=== PATIENT | male | born 1975 | race Caucasian/White ===

== ENCOUNTER 2023-09-11 08:05 | Outpatient (OUT) | payer OTHER, SELFPAY ==
[2023-09-11 08:34] LABS: Basophils Absolute Auto 0.1 10^3/uL (0.0-0.1); Basophils Percent Auto 1.8 % (0.2-2.0); Eosinophils Absolute Auto 0.3 10^3/uL (0.0-0.7); Eosinophils Percent Auto 5.1 % (0.9-7.0); Hematocrit 56.5 % (42.0-54.0); Hemoglobin 19.6 g/dL (14.0-18.0); Immature Granulocytes Abs Auto 0.05 10^3/uL (0.00-0.03); Immature Granulocytes Pct Auto 0.8 % (0.0-0.5); Lymphocytes Absolute Auto 1.1 10^3/uL (1.2-3.8); Lymphocytes Percent Auto 17.8 % (20.5-60.0); Mean Corpuscular HGB Conc 34.7 g/dL (29.9-35.2); Mean Corpuscular Volume 100.9 fL (80.0-94.0); Mean Platelet Volume 9.6 fL (9.5-13.5); Monocytes Absolute Auto 0.4 10^3/uL (0.3-0.8); Neutrophils Absolute Auto 4.1 10^3/uL (1.4-6.5); Neutrophils Percent Auto 68.5 % (43.0-75.0); Platelet Count 209 10^3/uL (150-450); Red Cell Distribution Width 13.5 % (11.0-15.0)
[2023-09-11 09:51] LABS: Alanine Aminotransferase 29 U/L (16-63); Albumin Globulin Ratio 1.1; Albumin Level 3.9 g/dL (3.4-5.0); Alkaline Phosphatase 87 U/L (46-116); Anion Gap 15.3; Aspartate Amino Transferase 17 U/L (15-37); BUN Creatinine Ratio 18.4; Bilirubin Total 1.6 mg/dL (0.2-1.0); Carbon Dioxide 23.4 mmol/L (21.0-32.0); Chloride 104 mmol/L (98-107); Cholesterol 133 mg/dL (<=200); Estimated GFR (African America >60 (>=60); Estimated GFR (Non-African Ame >60 (>=60); Free T3 3.12 pg/mL (2.18-3.98); Globulin 3.6 g/dL; Glucose 95 mg/dL (74-106); HDL Cholesterol 44 mg/dL (40-60); LDL Cholesterol Calculated 66.8 mg/dL; Potassium 3.7 mmol/L (3.5-5.1); Sodium 139 mmol/L (136-145); Thyroid Stimulating Hormone 2.304 uIU/mL (0.358-3.740); Total Protein 7.5 g/dL (6.4-8.2); Triglycerides 111 mg/dL (<=150); VLDL CHOLESTEROL 22.2 mg/dL
[2023-09-11 10:22] LABS: Prostate Specific Antigen Scrn 0.23 ng/mL (<=4.00)
[2023-09-11 11:13] LABS: Free T4 0.95 ng/dL (0.76-1.46)
== END 2023-09-11 08:06 | disposition home or self-care (01) ==
PROVIDERS: PCP Family Medicine; Visit Provider Family Medicine
DX: R53.83 Other fatigue (principal); Z12.5 Encounter for screening for malignant neoplasm of prostate; Z13.220 Encounter for screening for lipoid disorders; E55.9 Vitamin D deficiency, unspecified
CPT/HCPCS: 36415; 80053; 80061; 82306; 82607; 84402; 84403; 84439; 84443; 84481; 85025; G0103

== ENCOUNTER 2024-08-12 08:04 | Emergency (ER) | payer OTHER, SELFPAY ==
[2024-08-12 08:09] VITALS: BP 177/97; PULSE 86; TEMP 36.8; O2SAT 95; BMI 37.7
--- NOTE | 2024-08-12 08:14 | ED_ITS ---
HPI - Wound/Laceration General Chief Complaint: Wound/Laceration Stated Complaint: LACERATION L HAND Time Seen by Provider: 08/12/24 08:06 Source: patient Mode of arrival: walk-in Limitations: no limitations History of Present Illness HPI narrative: 49-year-old male presents to the emergency department for laceration to his left thumb. This was sustained yesterday when he was working on a truck and he cut it on a piece of metal. It has been more than 10 years since he had a tetanus shot. He put liquid glue on it but it seemed to not be working so he came in today. No purulent drainage. Related Data Previous Rx's ?Medication ?Instructions ?Recorded cephalexin 500 mg capsule 500 mg PO TID 5 days #15 caps 08/12/24 Allergies Allergy/AdvReac Type Severity Reaction Status Date / Time No Known Drug Allergies Allergy Verified 08/12/24 08:09 Review of Systems ROS Narrative A ten point review of systems is negative except as noted above. PFSH PFSH Social History Little interest or pleasure in doing things: not at all Feeling down, depressed, or hopeless: not at all Exam Narrative Exam Narrative: Nurses note and vital signs reviewed and patient is not hypoxic. General: The patient appears well and in no apparent distress. Patient is resting comfortably on cart. Skin: Warm, dry, no pallor noted. There is no rash noted. Head: Normocephalic, atraumatic Eye: Normal conjunctiva, no drainage Ears, Nose, Mouth, and Throat: oral mucosa is moist. Nares patent. Cardiovascular: Regular Rate and Rhythm Respiratory: Patient is in no distress, no accessory muscle use Back: non-tender GI: Nontender Musculoskeletal: The left thumb is examined. On the extensor side of the IP joint is a 1 and half centimeter laceration, transverse. No active bleeding or foreign bodies. IP joint has full range of motion. No other wounds present Neurological: A&O, normal speech Psychiatric: Cooperative Constitutional Vital Signs, click to edit/add: Last Vital Signs Temp 98.2 F 08/12/24 08:09 Pulse 86 08/12/24 08:09 Resp 18 08/12/24 08:09 BP 177/97 H 08/12/24 08:09 Pulse Ox 95 08/12/24 08:09 O2 Del Method Room Air 08/12/24 08:09 Course Vital Signs Vital signs: Vital Signs Temperature 98.2 F 08/12/24 08:09 Pulse Rate 86 08/12/24 08:09 Respiratory Rate 18 08/12/24 08:09 Blood Pressure 177/97 H 08/12/24 08:09 Pulse Oximetry 95 08/12/24 08:09 Oxygen Delivery Method Room Air 08/12/24 08:09 Temperature 98.2 F 08/12/24 08:09 Pulse Rate 86 08/12/24 08:09 Respiratory Rate 18 08/12/24 08:09 Blood Pressure 177/97 H 08/12/24 08:09 Pulse Oximetry 95 08/12/24 08:09 Oxygen Delivery Method Room Air 08/12/24 08:09 MDM - Wound/Laceration MDM Narrative Medical decision making narrative: Presentation is wait for sutures. Tetanus is updated. The wound was cleansed and Steri-Strips were applied. Splint applied, application checked by me and found to be appropriate, he is neurovascularly intact. Treatment diagnosis and follow-up were discussed with the patient. Differential Diagnosis Differential diagnosis: Likely laceration and avulsion of skin Discharge Plan Discharge Chief Complaint: Wound/Laceration Clinical Impression: Laceration Patient Disposition: Home, Self-Care Time of Disposition Decision: 08:13 Condition: Good Mode of Transportation: Private Vehicle Prescriptions / Home Meds: New cephalexin 500 mg capsule 500 mg PO TID 5 Days Qty: 15 0RF Print Language: Bengali Referrals: PRIETO LEAL [Primary Care Provider] - 1 week
--- OUTSIDE RECORDS SUMMARY | 2024-08-12 08:19 | XMS_ITS | CCD ---
Author Organization [facility] Care Team Providers Care Receivable Executive Name Role Phone EZE KENNEDY Primary Care Unavailable PAY, BROWN Attending Unavailable PAY, BROWN Consulting Unavailable PAY, BROWN Admitting Unavailable ALLAN BERGER Consulting Unavailable Maurice Leahy Consulting Unavailable MARCIAEZE M Attending Unavailable MARCIAEZE Consulting Unavailable MARCIA, EZE M Admitting Unavailable Marcia, Eez Unavailable Stormy White Unavailable Savanah Cuello Unavailable MARCIAEZE Primary Care Physician EZE KENNEDY Attending Unavailable MARCIA, EZE Robles Admitting Unavailable Marcia Eze MARIE. Primary Care Provider Edward Barnard DO Attending Provider Ginger Elder APRN Attending Provider [phone] Eze Kennedy DO. Primary Care Provider Ginger Elder APRN Attending Provider [phone] Eze Kennedy. Primary Care Unavailable Edward Barnard Admitting Unavailable Edward Barnard Attending Unavailable Eze Kennedy. Primary Care Unavailable Edward Barnard Admitting Unavailable Edward Barnard Attending Unavailable Ginger Elder Attending Unavailable Marcia, Eze Robles. Primary Care Unavailable Ginger Elder Admitting Unavailable Medications Current Medications Medication Drug Class(es) Dates Sig (Normalized) Sig (Original) acetaminophen 500 mg / diphenhydrAMINE hydrochloride 25 mg oral tablet (8 sources) Histamine-1 Receptor Antagonist take 1 tablet by mouth every twenty-four hours Tylenol PM Extra Strength 500-25 MG 1 tablet at bedtime as needed Orally Once a day Active celecoxib 200 mg oral capsule (8 sources) Nonsteroidal Anti-inflammatory Drug Start: 5 End: 5 take 1 capsule by mouth twice daily Celecoxib 200 mg capsule Active 200 MG PO Twice daily 180 90 May 24, 2024 11:05am cholecalciferol 0.075 mg oral tablet (1 source) Vitamin D Start: 5 take 1 tablet by mouth once daily Cholecalciferol (Vitamin D3) 75 mcg (3,000 unit) tablet Active 75 MCG PO Daily July 23, 2024 12:00am doxycycline hyclate 100 mg oral tablet (3 sources) Tetracycline-class Drug Start: 4 take 1 tablet by mouth every twelve hours Doxycycline Hyclate 100 MG 1 tablet Orally Twice a day for 10 day(s) Apr, Active losartan potassium 25 mg oral tablet (1 source) Angiotensin 2 Receptor Loc Start: 5 take 1 tablet by mouth once daily Losartan 25 mg tablet Active 25 MG PO Daily July 23, 2024 12:00am melatonin 10 mg extended release oral tablet (4 sources) Melatonin 10 MG as directed Orally Active Multivitamin tablet (1 source) Start: 5 take 1 tablet by mouth once daily Multivitamin tablet Active 1 TAB PO Daily July 23, 2024 12:00am Henderson-3 Fatty Acids 1,000 mg capsule (1 source) Start: 5 take 1 capsule by mouth once daily Henderson-3 Fatty Acids 1,000 mg capsule Active 1000 MG PO Daily July 23, 2024 12:00am tadalafil 20 mg oral tablet (20 sources) Phosphodiesterase 5 Inhibitor Start: 4 Tadalafil 20 mg tablet Active 20 MG PO .Q36HR February 22, 2024 2:42pm Start: 02-13-2024 End: 02-22-2024 Tadalafil 20 mg tablet Disco ntinued 0 .ROUTE .COMPLEX February 13, 2024 1:30pm February 22, 2024 2:42pm TAKE 1 TABLET EVERY 36 HOURS DIRECTED Start: 02-13-2024 End: 02-22-2024 Tadalafil 20 mg tablet Disco ntinued 0 .ROUTE .COMPLEX February 13, 2024 12:30pm February 22, 2024 1:42pm TAKE 1 TABLET EVERY 36 HOURS DIRECTED Start: 02-13-2024 End: 02-22-2024 Tadalafil Discontinued 0 .RO [place] .COMPLEX February 13, 2024 1:30pm February 22, 2024 2:42pm TAKE 1 TABLET EVERY 36 HOURS DIRECTED Start: 08-28-2020 End: 02-13-2024 Tadalafil 20 mg tablet Disco ntinued 20 MG PO September 17, 2021 12:00am February 13, 2024 1:30pm 60 actuat testosterone 20.25 mg/actuat topical gel (4 sources) Androgen Start: 05-10-2024 Testosterone (Androgel) 20.25 mg/1.25 gram (1.62 %) gel in metered-dose pump Active 1 PUMP TOPICAL Daily 75 May 10, 2024 1:23pm apply 1 pump amount over max area of ONE upper arm and shoulder traZODone hydrochloride 100 mg oral tablet (20 sources) Serotonin Reuptake Inhibitor Start: 01-12-2024 take 1 tablet by mouth once daily at bedtime as needed Trazodone 100 mg tablet Active 100 MG PO Daily at bedtime as needed January 12, 2024 1:18pm Start: 08-17-2023 End: 01-12-2024 Trazodone 100 mg tablet Disc ontinued 0 .ROUTE .COMPLEX 90 November 21, 2023 10:46am January 12, 2024 1:18pm TAKE 1 TABLET DAILY AT BEDTIME NEEDED Start: 05-14-2021 take 1 tablet by cl every twenty-four hours traZODone HCl 50 MG 1 tablet at bedtime as needed Orally Once a day for 30 day(s) Apr, Active Start: 05-11-2018 End: 08-17-2023 take 1 tablet by mouth once daily at bedtime Trazodone 100 mg tablet Discontinued 100 MG PO Daily at bedtime September 17, 2021 12:00am August 17, 2023 12:56pm Turmeric extract (1 source) Start: 07-23-2024 take 1 capsule by mo [facility] once daily Turmeric 400 mg capsule Active 400 MG PO Daily July 23, 2024 12:00am Completed/Discontinued Medications Medication Drug Class(es) Dates Sig (Normalized) Sig (Original) acetaminophen 325 mg / HYDROcodone bitartrate 5 mg oral tablet (9 sources) Opioid Agonist Start: 09-30-2021 End: 08-25-2023 take 1 tablet by mouth every six hours as needed for pain Hydrocodone-Acetam inophen 5-325 mg tablet Discontinued 1 TAB PO Q6H as needed for pain 18 11September 30, 2021 August 25, 2023 9:47am [id number] 200 actuat albuterol 0.09 mg/actuat metered dose inhaler (12 sources) beta2-Adrenergic Agonist Start: 08-22-2023 End: 05-30-2024 take 2 puff(s) by inhalation four times daily as needed Albuterol Sulfate 90 mcg/actuation HFA aerosol inhaler Discontinued 2 PUFF INHALATION Four times daily August 22, 2023 12:00am May 30, 2024 3:27pm [employer] puffs Inhalation 4 times a day prn; Note: Source Status: Start; Refills: 0; Provider: Khushboo Arnold Start: 04-28-2023 take 2 puff(s) by in halation four times daily as needed Albuterol Sulfate HFA 108 (90 Base) MCG/ACT 2 puffs Inhalation 4 times a day prn Apr, Active Albuterol Sulfate 90 mcg/actuation HFA aerosol inhaler (3 sources) Start: 05-30-2024 End: 07-23-2024 Albuterol Sulfate 90 mcg/actuation HFA aerosol inhaler Discontinued 2 INH INHALATION EVERY 4-6 HOURS as needed for shortness of breath or wheezing 6.7 May 30, 2024 1:00am July 23, 2024 10:20am Start: 05-30-2024 Albuterol Sulf ate 90 mcg/actuation HFA aerosol inhaler Active 2 INH INHALATION EVERY 4-6 HOURS as needed for shortness of breath or wheezing 6.7 May 30, 2024 12:00am azithromycin 250 mg oral tablet (3 sources) Macrolide Antimicrobial Start: 05-30-2024 End: 07-23-2024 Azithromycin 250 mg tablet Discontinued 0 PO .COMPLEX 6 May 30, 2024 1:00am July 23, 2024 10:21am For 250 mg dose pack: take 500 mg today (day 1), then 250 mg for 4 days (days 2-5) PO benzonatate 200 mg oral capsule (12 sources) Non-narcotic Antitussive Start: 08-22-2023 End: 08-25-2023 take 1 capsule by mouth three times daily Benzonatate 200 mg capsule Discontinued 1 CAP PO Three times daily August 22, 2023 12:00am August 25, 2023 9:46am [employer] capsule Orally Three times a day; Note: Source Status: Start; Refills: 0; Provider: Khushboo Arnold Start: 04-28-2023 take 1 capsule by mo uth every eight hours Benzonatate 200 MG 1 capsule Orally Three times a day Apr, Active esomeprazole 20 mg delayed release oral capsule (13 sources) Proton Pump Inhibitor Start: 08-22-2023 End: 08-25-2023 take 2 capsules by mouth once daily Esomeprazole Magnesium (Nexium) 20 mg capsule,delayed release(DR/EC) Discontinued 2 CAP PO Daily August 22, 2023 12:00am August 25, 2023 9:47am [employer] capsules Orally Once a day; Note: Source Status: Not-TakingundefinedPRN; Provider: Khushboo Pavon ( ) take 2 capsules by m outh every twenty-four hours NexIUM 24HR 20 MG 2 capsules Orally Once a day Not-Taking/PRN fluticasone propionate 0.05 mg/actuat metered dose nasal spray (12 sources) Corticosteroid Start: 08-22-2023 End: 05-30-2024 take 2 spray(s) nasal route once daily Fluticasone Propionate 50 mcg/actuation spray,suspension Discontinued 2 SPRAY INTRANASAL Daily August 22, 2023 12:00am May 30, 2024 3:27pm [employer] sprays Nasally Once a day; Note: Source Status: Start; Refills: 0; Provider: Khushboo Arnold Start: 04-28-2023 take 2 spray(s) nasa l route once daily Fluticasone Propionate 50 MCG/ACT 2 sprays Nasally Once a day for 14 day(s) Apr, Active ibuprofen 200 mg oral tablet (20 sources) Nonsteroidal Anti-inflammatory Drug Start: 08-22-2023 End: 05-03-2024 take 1 tablet by mouth three times daily as needed Ibuprofen 200 mg tablet Discontinued 200 MG PO Three times daily as needed August 25, 2023 9:47am May 03, 2024 10:32am take 1 tablet by cl th three times daily at mealtime as needed Ibuprofen 200 MG 1 tablet with food or m ilk as needed Orally Three times a day Not-Taking/PRN meloxicam 15 mg oral tablet (7 sources) Nonsteroidal Anti-inflammatory Drug Start: 01-15-2024 End: 02-05-2024 take 1 tablet by mouth once daily Meloxicam 15 mg tablet Discontinued 15 MG PO Daily January 15, 2024 12:00am February 05, 2024 10:31am methylPREDNISolone 4 mg oral tablet (5 sources) Corticosteroid Start: 05-30-2024 End: 07-23-2024 take 1 tablet by mouth once Methylprednisolone (Medrol (Cipriano)) 4 mg tablets,dose pack Discontinued 0 PO per package directions May 30, 2024 1:00am July 23, 2024 10:21am PO PER PKG DIR Start: 03-31-2022 methylPREDNISo lone 4 MG as directed Orally Once a day for 6 days Mar, Active predniSONE 20 mg oral tablet (9 sources) Start: 02-23-2024 End: 05-03-2024 take 3 tablets by mouth once daily, then take 2 tablets by mouth once daily, then take 1 tablet by mouth once daily at mealtime Prednisone 20 mg tablet Discontinued 0 PO daily 09 01February 23, 2024 12:00am May 03, 2024 10:13am 3 p.o. daily x 3 days, 2 p.o. daily x 3 days, 1 p.o. daily x 3 days -with food Start: 04-28-2023 take 1 tablet by cl th every twelve hours prednisone 20 MG 1 tablet Orally 2 times a day for 5 Apr, Active Testosterone (Androgel) 20.2 5 mg/1.25 gram (1.62 %) gel in metered-dose pump (8 sources) Start: 09-21-2023 End: 05-10-2024 Testosterone (Androgel) 20.2 5 mg/1.25 gram (1.62 %) gel in metered-dose pump Discontinued 1 PUMP TOPICAL Daily 75 September 21, 2023 12:00am May 10, 2024 1:23pm apply 1 pump amount over max area of ONE upper arm and shoulder Start: 09-21-2023 End: 05-10-2024 Testosterone (Androgel) 20.2 5 mg/1.25 gram (1.62 %) gel in metered-dose pump Discontinued 1 PUMP TOPICAL Daily 75 September 20, 2023 11:00pm May 10, 2024 12:23pm apply 1 pump amount over max area of ONE upper arm and shoulder Start: 09-21-2023 Testosterone ( Androgel) 20.25 mg/1.25 gram (1.62 %) gel in metered-dose pump Active 1 PUMP TOPICAL Daily 75 September 20, 2023 11:00pm apply 1 pump amount over max area of ONE upper arm and shoulder Start: 09-21-2023 Testosterone ( Androgel) 20.25 mg/1.25 gram (1.62 %) gel in metered-dose pump Active 1 PUMP TOPICAL Daily 75 September 21, 2023 12:00am apply 1 pump amount over max area of ONE upper arm and shoulder Problems Active Problems Problem Classification Problem Date Documented Date Episodic/Chronic Chronic obstructive pulmonary disease and bronchiectasis (1 source) Bronchitis, not specified as acute or chronic Episodic Esophageal disorders (5 sources) Laryngopharyngeal reflux; Translations: [Gastro-esophageal reflux disease without esophagitis] Chronic Essential hypertension (2 sources) Hypertensive disorder; Translations: [Essential (primary) hypertension] 07-23-2024 Chronic Fever of unknown origin (4 sources) Fever, unspecified; Translations: [FEVER UNSPECIFIED] Onset: 04-28-2020 Episodic Headache; including migraine (17 sources) Ophthalmic migraine; Translations: [Migraine with aura, not intractable, without status migrainosus] Onset: 05-14-2021 Resolved: 05-14-2021 Chronic Joint disorders and dislocations; trauma-related (1 source) Unspecified internal derangement of right knee; Translations: [Unspecified internal derangement of right knee] Onset: 04-18-2024 Chronic Malaise and fatigue (10 sources) Fatigue; Translations: [Other fatigue] 08-25-2023 Episodic Osteoarthritis (20 sources) Osteoarthritis of left knee joint; Translations: [Unilateral primary osteoarthritis, left knee] Onset: 08-09-2024 02-05-2024 Chronic Other lower respiratory disease (2 sources) Cough; Translations: [Cough] 02-23-2024 Episodic Other lower respiratory disease (3 sources) Dyspnea; Translations: [Shortness of breath] 05-30-2024 Episodic Other lower respiratory disease (3 sources) Wheezing; Translations: [Wheezing] 05-30-2024 Episodic Other lower respiratory disease (3 sources) Pneumonitis; Translations: [Other disorders of lung] 05-30-2024 Episodic Other lower respiratory disease (3 sources) Other disorders of lung; Translations: [Pneumonia, organism unspecified] 05-30-2024 Episodic Other lower respiratory disease (1 source) Wheezing; Translations: [Wheezing] Onset: 05-30-2024 Episodic Other lower respiratory disease (1 source) Shortness of breath; Translations: [Shortness of breath] Onset: 05-30-2024 Episodic Other male genital disorders (18 sources) Male erectile dysfunction, unspecified; Translations: [Erectile dysfunction, unspecified erectile dysfunction type] Onset: 12-31-2021 Resolved: 12-31-2021 Chronic Other nervous system disorders (16 sources) Meralgia paresthetica of right leg; Translations: [Meralgia paresthetica, right lower limb] Chronic Other nervous system disorders (9 sources) Acute postoperative pain; Translations: [Other acute postprocedural pain] 09-30-2021 Episodic Other non-traumatic joint disorders (2 sources) Pain in right knee; Translations: [Pain in joint, lower leg] 01-15-2024 Episodic Other screening for suspected conditions (not mental disorders or infectious disease) (14 sources) Decreased testosterone level ; Translations: [Other specified abnormal findings of blood chemistry] 09-21-2023 Episodic Other upper respiratory disease (1 source) Dysphonia Episodic Other upper respiratory infections (2 sources) Acute laryngitis; Translations: [Acute sinusitis, unspecified] Episodic Residual codes; unclassified (16 sources) Difficulty sleeping ; Translations: [Sleep disorder, unspecified] Episodic Residual codes; unclassified (6 sources) Sleep disorder, unspecified Onset: 05-14-2021 Resolved: 11-08-2021 Episodic Screening and history of mental health and substance abuse codes (1 source) Personal history of nicotine dependence; Translations: [PERSONAL HISTORY OF NICOTINE DEPEND] Onset: 04-30-2020 Episodic Unclassified (1 source) COVID-19; Translations: [COVID-19] Onset: 04-30-2020 Unclassified (3 sources) Contact with and (suspected) exposure to; Translations: [Contact with and (suspected) exposure to] Onset: 04-27-2020 Past or Other Problems Problem Classification Problem Date Documented Da te Episodic/Chronic Abdominal hernia (2 sources) Umbilical hernia without obstruction or gangrene Onset: 07-23-2021 Resolved: 09-24-2021 Episodic Other upper respiratory disease (1 source) Unspecified voice and resonance disorder Onset: 05-14-2021 Resolved: 05-14-2021 Episodic Results Test Name Value Interpretation Reference Range Facility XR knee BI 4Von 08-09-2024 XR knee BI 4V [facility] [address] [place] [address] XRay Report Signed Patient: Earle Mancia MR#: [id number] 310 : 1975 Acct:[id number] Age/Sex: 49 / M ADM Date: 08/09/24 Loc: [facility] Room: Type: [facility] Attending Dr: Edward Barnard DO Copies to: Edward Barnard DO Ordering Provider: Edward Barnard DO Date of Service: 08/09/24 XR/XR knee BI 4V: M17.12 - Unilateral primary osteoarthritis, left knee BILATERAL KNEES - 4 views each CLINICAL HISTORY: Bilateral knee pain, greater on the right. No injury. COMPARISON: 01/15/2024 Weightbearing AP, lateral, skiers and sunrise views were obtained. No acute fractures or dislocation are noted. No patellar subluxation is seen. There is mild to moderate narrowing at the medial tibiofemoral joint compartments on both sides. There is also minor tricompartment marginal spurring. There is a trace amount joint fluid on the right. No soft tissue swelling is noted. XR/XR knee BI 4V IMPRESSION: MILD DEGENERATIVE CHANGES, GREATEST MEDIALLY. Impression dictated by: Stefanie Guzman M.D.08/09/2024 11:48 AM Dictation Location: [address] By: JAROD 08/09/24 1148 Dictated By: Stefanie Guzman MD 08/09/24 1145 Signed By: 08/09/24 1148 Normal [facility] X-ray reportOrdered By: Baron Joyner on 05-30-2024 Study report [facility] [place] [address] XRay Report Signed Patient: Earle Mancia MR#: [id number] : 1975 Acct:[id number] Age/Sex: 48 / M ADM Date: 5 Loc: [facility] Room: Type: [facility] Attending Dr: Ginger Elder MANAGING DIRECTOR ATLAS Copies to: Ginger Elder APRN~ Ordering Provider: Ginger Elder APRN Date of Service: 05/30/24 XR/XR chest 2V*: R06.2 - Wheezing Plain film chest 2 view HISTORY: Cough and chest congestion COMPARISON: 07/19/2006 FINDINGS: SUPPORT DEVICES: None POSTSURGICAL CHANGES: None HEART: Within normal limits PULMONARY ANJU: Within normal limits MEDIASTINUM: Unremarkable LUNGS AND PLEURA: Developing basilar groundglass consolidation. Consider pneumonitis/infiltra te. Minimal blunting of posterior costophrenic angle. No pneumothorax. BONY STRUCTURES: Intact ADDITIONAL FINDINGS None XR/XR chest 2V* IMPRESSION: Minimal basilar ground glass infiltrate/pneumonit is. Impression dictated by: Brown Joyner M.D.05/30/2024 3:10 PM Dictation Location: [facility]- Transcribed By: [facility] 05/30/24 1510 Dictated By: Brown Joyner DO 05/30/24 1507 Signed By: 05/30/24 1510 [facility] XR chest 2V*on 05-30-2024 XR chest 2V* [facility] [place] [id number] XRay Report Signed Patient: Earle Mancia MR#: [id number] 310 : 1975 Acct:[id number] Age/Sex: 48 / M ADM Date: 05/30/24 Loc: XDUCLY Room: Type: REG CLI Attending Dr: Ginger Elder MANAGING DIRECTOR ATLAS Copies to: Ginger Elder APRN Ordering Provider: Ginger Elder APRN Date of Service: 05/30/24 XR/XR chest 2V*: R06.2 - Wheezing Plain film chest 2 view HISTORY: Cough and chest congestion COMPARISON: 07/19/2006 FINDINGS: SUPPORT DEVICES: None POSTSURGICAL CHANGES: None HEART: Within normal limits PULMONARY ANJU: Within normal limits MEDIASTINUM: Unremarkable LUNGS AND PLEURA: Developing basilar groundglass consolidation. Consider pneumonitis/infiltra te. Minimal blunting of posterior costophrenic angle. No pneumothorax. BONY STRUCTURES: Intact ADDITIONAL FINDINGS None XR/XR chest 2V* IMPRESSION: Minimal basilar ground glass infiltrate/pneumonit is. Impression dictated by: Brown Joyner M.D.05/30/2024 3:10 PM Dictation Location: [facility] Transcribed By: [facility] 05/30/24 1510 Dictated By: Brown Joyner DO 05/30/24 1507 Signed By: 05/30/24 1510 Normal [facility] MR knee RT wo conon 04-18-20 MR knee RT wo con [facility] [place] [address] [place] [address] MRI Report Signed Patient: Earle Mancia MR#: [id number] 310 : 1975 Acct:[id number] Age/Sex: 48 / M ADM Date: 04/18/24 [facility] Room: Type: REG CLI Attending Dr: Edward Barnard DO Copies to: Edward Barnard DO Ordering Provider: Edward Barnard DO Date of Service: 04/18/24 MR/MR knee RT wo con: M23.91 - Unspecified internal derangement of right knee MR knee RT wo con 04/18/2024 7:02 AM SIGNS AND SYMPTOMS: Medial right knee pain with swelling and painful range of motion PROTOCOL: Multiplanar multisequence MR images of the right knee without contrast COMPARISON: 01/15/2024. FINDINGS: Fluid: No joint effusion.. Medial compartment: Medial meniscus: There is a radially oriented relatively displaced tear along the body of the medial meniscus. The body of the medial meniscus is slightly extruded from the joint space. No displaced fragments. Medial collateral ligament: Intact. Medial femoral condyle cartilage: There is partial thickness chondromalacia with subchondral cystic change and edema.. Medial tibial plateau cartilage: There is mild partial thickness chondromalacia with subchondral edema. Lateral compartment: Lateral meniscus: Intact. Lateral collateral ligament: Preserved. Lateral femoral condyle cartilage: Preserved. Lateral tibial plateau cartilage: Preserved. Posterolateral corner: Popliteus tendon: Intact. Popliteofibular ligament: Intact. Proximal tibiofibular joint: Intact. Anterior compartment: Alignment: Normal. Quadriceps tendon: Intact. Patellar tendon: Intact. Retinaculum: Medial Intact. Lateral Intact. Patellar cartilage: Intact. Trochlea: Intact. . Plica: None. Hoffa fat pad: Normal. Intercondylar compartment: Anterior cruciate ligament: Intact. Posterior cruciate ligament: Intact. Bones (other than subarticular marrow): Normal. Muscles: Normal. Vessels: Normal. Nerves: Normal. MR/MR knee RT wo con IMPRESSION: There is a radially oriented relatively displaced tear along the body of the medial meniscus. The body of the medial meniscus is slightly extruded from the joint space. There is partial thickness chondromalacia along both sides of the medial weightbearing joint space with subchondral cystic change and edema greatest in the medial femoral condyle. The knee is otherwise structurally intact. Impression dictated by: Shola Goff M.D.04/18/2024 9:01 AM Dictation Location: [place] [address] Transcribed By: [facility] 04/18/24900 Dictated By: Shola Goff II, MD 04/18/24 0856 Signed By: 04/18/24900 Normal [facility] XR Knee Complete 4+ Views [facility] 01-16-2024 XR Knee Complete 4+ Views Left Exam Date/Time: 01/15/2024 10:50 EDT Reason for Exam: bilateral knee pain Report IMPRESSION: NO ACUTE OSSEOUS ABNORMALITY. EXAM: XR Knee Complete 4+ Views Left HISTORY: Knee pain TECHNIQUE: AP, lateral and oblique views of the knee obtained. COMPARISON: None available FINDINGS: No acute fracture or dislocation. Joint spaces of the knee are maintained. Small knee joint effusion. Soft tissues are within normal limits. Ordering Provider: EZE KENNEDY FINAL REPORT Dictated: 01/16/2024 4:53 pm Spike Medina DO Signed (Electronic Signature): 01/16/2024 4:53 pm Signed by: Spike Medina DO Transcribed by: MARISEL Technologist: [place] Technical Comments Radiation Dose: Ka,r in mGy = na DAP = na Normal [facility] XR Knee Complete 4+ Views Lennie cole 01-16-2024 XR Knee Complete 4+ Views Right Exam Date/Time: 01/15/2024 10:50 EDT Reason for Exam: bilateral knee pain Report IMPRESSION: NO ACUTE OSSEOUS ABNORMALITY. EXAM: XR Knee Complete 4+ Views Right HISTORY: Knee pain TECHNIQUE: AP, lateral and oblique views of the knee obtained. COMPARISON: None available FINDINGS: No acute fracture or dislocation. Minimal medial compartment degenerative changes. No knee joint effusion. Soft tissues are within normal limits. Ordering Provider: EZE KENNEDY FINAL REPORT Dictated: 01/16/2024 4:54 pm Spike Medina DO Signed (Electronic Signature): 01/16/2024 4:54 pm Signed by: Spike Medina DO Transcribed by: MARISEL Technologist: [place] Technical Comments Radiation Dose: Ka,r in mGy = na DAP = na Normal [facility] COVID + FLU Quick Testingon 03-31-2022 SARS-CoV-2 (COVID-19) RNA AYDE+probe Ql (Unsp spec) Negative [facility] Other COVID + FLU Quick Testing Negative [facility] Other XR CHEST 1 Von 04-29-2020 XR CHEST 1 V ONE-VIEW CHEST RADIOGRAPH, 04/28/2020 9:27 PM EST COMPARISON: None CLINICAL HISTORY: COUGH with fever and positive Covid. FINDINGS: No acute cardiopulmonary disease. No pulmonary edema, pneumothorax, or pleural effusion. Normal heart size. No acute osseous abnormality. IMPRESSION: No acute abnormality identified. Electronically authenticated by: Maurice LEAHY Date: 2020-04-28 22:09 Normal [facility] ACETONE SERUMon 04-28-2020 ACETONE Negative Normal NEGATIVE [facility] Comment on above: Performed By: #### A DORINA #### [facility] [address] [id number] Rolanda Stefanie CBC W MANUAL DIFFon 04-28-19 21 ATYPICAL LYMPH # 0.05 103/ul Normal [facility] Comment on above: Performed By: #### Jaron LUGO #### [facility] [address] [id number] Rolanda Stefanie ATYPICAL LYMPH % 1 % Normal [facility] Comment on above: Performed By: #### Jaron LUGO #### [facility] [address] [address] Rolanda Stefanie BAND # 0.3 103/ul Normal 0.0-0.3 [facility] Comment on above: Performed By: #### Jaron LUGO #### [facility] [address] [address] Rolanda Stefanie BAND % 7 % Critically high 0-5 [facility] Comment on above: Performed By: #### Jaron LUGO #### [facility] [address] [place] [address] Rolanda Stefanie BASOM # 0.00 103/ul Normal 0.00-0.10 [facility] Comment on above: Performed By: #### Jaron LUGO #### [facility] [address] [place] [address] Rolanda Stefanie BASOM % 0.0 % Critically low 0.2-2.0 [facility] Comment on above: Performed By: #### Jaron LUGO #### [facility] [address] [place] [address] Rolanda Stefanie BLAST # Normal [facility] Comment on above: Performed By: #### Jaron LUGO #### [facility] [address] [place] [address] Rolanda Stefanie BLAST % Normal [facility] Comment on above: Performed By: #### Jaron LUGO #### [facility] [address] [place] [address] Rolanda Stefanie CORRECTED WBC Normal 4.0-11.0 [facility] Comment on above: Performed By: #### Jaron LUGO #### [facility] [address] [place], [place] [address] Rolanda Stefanie Eosinophils (Bld) [#/Vol] 0.05 103/ul Normal 0.00-0.70 [facility] Comment on above: Performed By: #### C PARISH #### [facility] [address] [place], [place] [address] Rolanda Stefanie Eosinophils/100 WBC (Bld) 1.0 % Normal 0.9-7.0 [facility] Comment on above: Performed By: #### C PARISH #### [facility] [address] [phone] Rolanda Stefanie Erythrocyte distribution width (RBC) [Ratio] 13.7 % Normal 11.0-15.0 [facility] Comment on above: Performed By: #### C PARISH #### [facility] [address] [phone] Rolanda Stefanie Hematocrit (Bld) [Volume fraction] 57.7 % Critically high 42.0-54.0 [facility] Comment on above: Performed By: #### C PARISH #### [facility] [address] [phone] Rolanda Stefanie Hemoglobin (Bld) [Mass/Vol] 19.9 g/dl Critically high 14.0-18.0 [facility] Comment on above: Performed By: #### Jaron LUGO #### [facility] [address] [place], [place] [phone] Rolanda Stefanie LYMPHM # 0.54 103/ul Critically low 1.20-3.80 [facility] Comment on above: Performed By: #### C PARISH #### [facility] [address] [place], [place] [address] Rolanda Stefanie LYMPHM% 11.0 % Critically low 20.5-60.0 [facility] Comment on above: Performed By: #### C PARISH #### [facility] [address] [place], [place] [address] Rolanda Stefanie MCH (RBC) [Entitic mass] 34.6 pg Critically high 25.9-34.0 [facility] Comment on above: Performed By: #### Jaron LUGO #### [facility] [address] [place] [address] Rolandageoffrey Watts MCHC (RBC) [Mass/Vol] 34.5 g/dl Normal 29.9-35.2 [facility] Comment on above: Performed By: #### Jaron LUGO #### [facility] [address] [place] [address] Rolandageoffrey Watts MCV (RBC) [Entitic vol] 100.3 fL Critically high 80.0-94.0 [facility] Comment on above: Performed By: #### Jaron LUGO #### [facility] [address] [place] [address] Rolanda Stefanie METAMYELOCYTE # Normal [facility] Comment on above: Performed By: #### Jaron LUGO #### [facility] [address] [place] [address] Rolanda Stefanie METAMYELOCYTE % Normal [facility] Comment on above: Performed By: #### Jaron LUGO #### [facility] [address] [place] [address] Rolanda Stefanie MONOM# 0.49 103/ul Normal 0.30-0.80 [facility] Comment on above: Performed By: #### Jaron LUGO #### [facility] [address] [place] [address] Rolanda Stefanie MONOM% 10.0 % Normal 1.7-12.0 [facility] Comment on above: Performed By: #### Jaron LUGO #### [facility] [address] [place] [address] Rolanda Stefanie MYELOCYTE # Normal [facility] Comment on above: Performed By: #### Jaron LUGO #### [facility] [address] [place] [address] Rolanda Stefanie MYELOCYTE % Normal [facility] Comment on above: Performed By: #### Jaron LUGO #### [facility] [address] [place] [address] Rolanda Stefanie NRBC Normal [facility] Comment on above: Performed By: #### C PARISH #### [facility] [address] [place], [place] [address] Rolanda Stefanie Platelet mean volume (Bld) [Entitic vol] 9.9 fL Normal 9.5-13.5 [facility] Comment on above: Performed By: #### C PARISH #### [facility] [address] [place], [place] [address] Rolanda Stefanie Platelets (Bld) [#/Vol] 168 103/ul Normal 150-450 [facility] Comment on above: Performed By: #### C PARISH #### [facility] [address] [place], [place] [address] Rolanda Stefanie RBC (Bld) [#/Vol] 5.75 106/ul Normal 4.70-6.10 [facility] Comment on above: Performed By: #### Jaron LUGO #### [facility] [address] [phone] Rolanda Stefanie SEG # 3.43 103/ul Normal 1.40-6.50 [facility] Comment on above: Performed By: #### Jaron LUGO #### [facility] [address] [place], [place] [address] Rolanda Stefanie Segmented neutrophils/100 WBC (Bld) 70.0 % Normal 43.0-75.0 [facility] Comment on above: Performed By: #### Jaron LUGO #### [facility] [address] [place], [place] [address] Rolanda Stefanie WBC (Bld) [#/Vol] 4.9 103/ul Normal 4.0-11.0 [facility] Comment on above: Performed By: #### Jaron LUGO #### [facility] [address] [place], [place] [address] Rolanda Stefanie LACTATE/LACTIC ACIDon 2020 Lactate [Moles/Vol] 2.0 mmol/L Normal 0.7-2.0 [facility] Comment on above: Performed By: #### A CETJON #### [facility] [address] [place], [place] [address] Rolanda Stefanie PH VENOUS BLOODon 04-28-2020 PCO2 VENOUS 50.6 mmHg Normal 40.0-52.0 [facility] Comment on above: Performed By: #### A CETON #### [facility] [address] [place] [address] Rolanda Stefanie pH VENOUS 7.36 Normal 7.33-7.43 [facility] Comment on above: Performed By: #### A CETON #### [facility] [address] [place] [address] Rolanda Stefanie PROCALCITONINon 04-28-2020 PCT header 1 SEE BELOW Normal [facility] Comment on above: Result Comment: PCT <0.5ng/mL: Systemic infection (sepsis) is not likely, local bacterial infection possible, low risk for progression to severe systemic infection (severe sepsis) Performed By: #### P RL #### [facility] [address] [place] [address] Rolanda Stefanie PCT header 2 SEE BELOW Normal [facility] Comment on above: Result Comment: PCT >/=0.5 and <2 ng/mL: Systemic infection (sepsis) is possible, moderate risk for progression to severe systemic infection (severe sepsis) Performed By: #### P RL #### [facility] [address] [place] [address] Rolanda Stefanie PCT header 3 SEE BELOW Normal [facility] Comment on above: Result Comment: PCT >/=2.0 and <10 ng/mL: Systemic infection (sepsis) is likely, unless other causes are known, high risk for progession to severe systemic infection(severe sepsis) Performed By: #### P RL #### [facility] [address] [place] [address] Rolanda Stefanie PCT header 4 SEE BELOW Normal [facility] Comment on above: Result Comment: PCT >/= 10 ng/mL: Important systemic inflammatory response almost exclusively due to severe bacterial sepsis or septic shock, high likelihood of severe sepsis or septic shock Performed By: #### P RL #### [facility] [address] [place] [address] Rolanda Stefanie PROCALCITONIN 0.07 ng/mL Normal 0.00-0.50 [facility] Comment on above: Performed By: #### P RL #### [facility] [address] [place], [place] [address] Rolanda Watts PROF 14(COMP METB)on 021 Albumin [Mass/Vol] 3.5 g/dL Normal 3.5-5.0 [facility] Comment on above: Performed By: #### H KAYY, CMP #### [facility] [address] [phone] Rolanda Stefanie Albumin/Globulin [Mass ratio] 1.0 {ratio} Normal [facility] Comment on above: Performed By: #### H KAYY, CMP #### [facility] [address] [phone] Rolanda Stefanie ALP [Catalytic activity/Vol] 96 U/L Normal 38-126 [facility] Comment on above: Performed By: #### H KAYY, CMP #### [facility] [address] [place] [address] Rolanda Stefanie ALT [Catalytic activity/Vol] 33 U/L Normal 21-72 [facility] Comment on above: Performed By: #### H KAYY, CMP #### [facility] [address] [phone] Rolanda Stefanie Anion gap [Moles/Vol] 12.8 mmol/L Normal [facility] Comment on above: Performed By: #### H KAYY, CMP #### [facility] [address] [place], [place] [address] Rolanda Stefanie AST [Catalytic activity/Vol] 26 U/L Normal 17-59 [facility] Comment on above: Performed By: #### H STROEDDY, CMP #### [facility] [address] [phone] Rolanda Stefanie Bilirubin Ql (U) 0.6 mg/dL Normal 0.2-1.3 [facility] Comment on above: Performed By: #### H KAYY, CMP #### [facility] [address] [phone] Rolanda Stefanie Calcium [Mass/Vol] 8.7 mg/dL Normal 8.4-10.2 [facility] Comment on above: Performed By: #### H STROEDDY, CMP #### [facility] [address] [address] Rolanda Stefanie Chloride [Moles/Vol] 104 mmol/L Normal 98-107 [facility] Comment on above: Performed By: #### H STROPN, CMP #### [facility] [address] [address] Rolanda Stefanie CO2 [Moles/Vol] 25.0 mmol/L Normal 22.0-30.0 [facility] Comment on above: Performed By: #### H STROEDDY, CMP #### [facility] [address] [place] [address] Rolanda Stefanie Creatinine [Mass/Vol] 0.98 mg/dL Normal 0.66-1.25 [facility] Comment on above: Performed By: #### H STROEDDY, CMP #### [facility] [address] [place] [address] Rolanda Stefanie EGFR-AF IRANIAN >60 Normal >=60 [facility] Comment on above: Performed By: #### H STROEDDY, CMP #### [facility] [address] [place] [address] Rolanda Stefanie EGFR-NON AF IRANIAN >60 Normal >=60 [facility] Comment on above: Performed By: #### H STROEDDY, CMP #### [facility] [address] [place] [address] Rolanda Stefanie Globulin (S) [Mass/Vol] 3.6 g/dL Normal [facility] Comment on above: Performed By: #### H STROPN, CMP #### [facility] [address] [place] [address] Rolanda Stefanie Glucose [Mass/Vol] 105 mg/dL Normal 74-106 [facility] Comment on above: Performed By: #### H STROPN, CMP #### [facility] [address] [place] [address] Rolanda Stefanie Potassium [Moles/Vol] 3.8 mmol/L Normal 3.4-5.0 [facility] Comment on above: Performed By: #### H KAYY, CMP #### [facility] [address] [phone] Rolanda Stefanie Protein [Mass/Vol] 7.1 g/dL Normal 6.1-8.2 [facility] Comment on above: Performed By: #### H KAYY, CMP #### [facility] [address] [phone] Rolanda Stefanie Sodium [Moles/Vol] 138 mmol/L Normal 137-145 [facility] Comment on above: Performed By: #### H KAYY, CMP #### [facility] [address] [place], [place] [address] Rolanda Stefanie Urea nitrogen [Mass/Vol] 13.0 mg/dL Normal 9.0-20.0 [facility] Comment on above: Performed By: #### H KAYY, CMP #### [facility] [address] [place] [address] Rolanda Stefanie Urea nitrogen/Creatinine [Mass ratio] 13.3 mg/mg Normal [facility] Comment on above: Performed By: #### H KAYY, CMP #### [facility] [address] [place], [place] [address] Rolanda Watts PROTIMEon 04-28-2020 INR Coag (PPP) [Relative time] 1.05 {INR} Normal [facility] Comment on above: Performed By: #### P TT, PT #### [facility] [address] [place], [place] [phone] Rolanda Stefanie PT Coag (PPP) [Time] 11.4 s Normal 9.0-11.6 [facility] Comment on above: Performed By: #### P TT, PT #### [facility] [address] [place], [place] [phone] Rolanda Stefanie PT Coag (PPP) [Time] SEE BELOW Normal [facility] Comment on above: Result Comment: NIMO RED INR: 2.0 - 3.0 CONDITIONS NOT LISTED BELOW 2.5 - 3.5 FOR PROSTHETIC HEART VALVE REPLACEMENT 2.5 - 3.5 RECURRENT THROMBOSIS Performed By: #### P TT, PT #### [facility] [address] [place], [place] [address] Rolanda Watts PTTon 04-28-2020 aPTT Coag (Bld) [Time] 31.1 s Normal 22.3-36.2 [facility] Comment on above: Performed By: #### P TT, PT #### [facility] [address] [address] Rolanda Stefanie TROPONIN, HIGH SENSITIVITYon 04-28-2020 HSTROP 7.0 pg/mL Normal 4.0-42.2 [facility] Comment on above: Result Comment: CUT- OFF POINTS HAVE BEEN ESTABLISHED BASED ON THE FOURTH UNIVERSAL DEFINITIONS OF MYOCARDIAL INFARCTION. THE UPPER REFERENCE LIMIT (URL) OF TROPONIN, DEFINED THE 99TH PERCENTILE OF cTnI DISTRIBUTION IN A REFERENCE POPULATION, HAS BEEN CONFIRMED THE DECISION THRESHOLD FOR MD DIAGNOSIS. Performed By: #### H STROPN, CMP #### [facility] [address] [place] [address] [facility]on Covid-19 PCR DETECTED Abnormal NOT DETECTED [facility] Comment on above: Result Comment: This test is not yet approved or cleared by the [place] FDA. When there are no FDA-approved or cleared tests available, and other criteria are met, FDA can make tests available under an emergency access mechanism called an Emergency Use Authorization (EUA). The EUA for this test is supported by the [place] of Health and Human Service's (HHS's) declaration that circumstances exist to justify the emergency use of in vitro diagnostics for the detection and/or diagnosis of the virus that causes COVID-19. This EUA will remain in effect (meaning this test can be used) for the duration of the COVID-19 declaration justifying emergency of IVDs, unless it is terminated or revoked by FDA (after which the test may no longer be used). Performed By: #### C VDTBH #### [facility] [address] [place] [address] Rolanda Watts EUA Statement SEE BELOW Normal [facility] Comment on above: Result Comment: This test is not yet approved or cleared by the [place] FDA. When there are no FDA-approved or cleared tests available, and other criteria are met, FDA can make tests available under an emergency access mechanism called an Emergency Use Authorization (EUA). The EUA for this test is supported by the [place] of Health and Human Service?s (HHS?s) declaration that circumstances exist to justify the emergency use of in vitro diagnostics for the detection and/or diagnosis of the virus that causes COVID-19. This EUA will remain in effect (meaning this test can be used) for the duration of the COVID-19 declaration justifying emergency of IVDs, unless it is terminated or revoked by FDA (after which the test may no longer be used). When diagnostic testing is negative, the possibility of a false negative should be considered in the context of a patients recent exposures and the presence of clinical signs and symptoms consistent with SARS-CoV-2. Performed By: #### C [facility] #### [facility] [address] [place] [address] Rolanda Watts Vital Signs Date Time Vital Sign Value Performing Clinician Facility 07-23-2024 10:29-0400 Diastolic blood pressure 100 mm[Hg] Eze Marcia DO Work Phone: [facility] 07-23-2024 10:29-0400 Systolic blood pressure 170 mm[Hg] Eze Marcia DO Work Phone: [facility] 07-23-2024 10:19-0400 Body height 180.34 cm Eze Marcia DO Work Phone: [facility] 07-23-2024 10:19-0400 Body mass index (BMI) [Ratio] 39.3 kg/m2 Eze Marcia DO Work Phone: [facility] 07-23-2024 10:19-0400 Body temperature 96 [degF] Eze Marcia DO Work Phone: [facility] 07-23-2024 10:19-0400 Body weight 127.91 kg Eze Marcia DO Work Phone: [facility] 07-23-2024 10:19-0400 Heart rate 71 /min Eze Marcia DO Work Phone: [facility] 07-23-2024 10:19-0400 Respiratory rate 18 /min Eze Marcia DO Work Phone: [facility] 07-23-2024 10:19-0400 SaO2% (BldA) [Mass fraction] 96 % Eze Marcia DO Work Phone: [facility] 05-30-2024 14:34-0500 Body height 180.34 cm Eze Marcia DO Work Phone: [facility] 05-30-2024 14:34-0500 Body mass index (BMI) [Ratio] 41.7 kg/m2 Eze Marcia DO Work Phone: [facility] 05-30-2024 14:34-0500 Body temperature 98.2 [degF] Eze Marcia DO Work Phone: [facility] 05-30-2024 14:34-0500 Body weight 135.73 kg Eze Marcia DO Work Phone: [facility] 05-30-2024 14:34-0500 Diastolic blood pressure 90 mm[Hg] Eze Marcia DO Work Phone: [facility] 05-30-2024 14:34-0500 Heart rate 79 /min Eze Marcia DO Work Phone: [facility] 05-30-2024 14:34-0500 Respiratory rate 19 /min Eze Marcia DO Work Phone: [facility] 05-30-2024 14:34-0500 SaO2% (BldA) [Mass fraction] 93 % Eze Marcia DO Work Phone: [facility] 05-30-2024 14:34-0500 Systolic blood pressure 151 mm[Hg] Eze Marcia DO Work Phone: [facility] 05-15-2024 08:21-0500 Body height 180.34 cm Eze Marcia DO Work Phone: [facility] 05-15-2024 08:21-0500 Body mass index (BMI) [Ratio] 41.5 kg/m2 Eze Marcia DO Work Phone: [facility] 05-15-2024 08:21-0500 Body weight 135.17 kg Eze Marcia DO Work Phone: [facility] 02-23-2024 08:44-0400 Body height 180.34 cm [facility] 02-23-2024 08:44-0400 Body mass index (BMI) [Ratio] 42.1 kg/m2 [facility] 02-23-2024 08:44-0400 Body temperature 97 [degF] [facility] 02-23-2024 08:44-0400 Body weight 136.98 kg [facility] 02-23-2024 08:44-0400 Diastolic blood pressure 88 mm[Hg] [facility] 02-23-2024 08:44-0400 Heart rate 85 /min [facility] 02-23-2024 08:44-0400 SaO2% (BldA) [Mass fraction] 97 % [facility] 02-23-2024 08:44-0400 Systolic blood pressure 142 mm[Hg] [facility] 01-30-2024 11:24-0400 Body height 180.34 cm [facility] 01-30-2024 11:24-0400 Body mass index (BMI) [Ratio] 40.4 kg/m2 [facility] 01-30-2024 11:24-0400 Body weight 131.54 kg [facility] 01-17-2024 09:16-0400 Diastolic blood pressure 98 mm[Hg] [facility] 01-17-2024 09:16-0400 Systolic blood pressure 140 mm[Hg] [facility] 01-15-2024 10:15-0400 Body height 180.34 cm [facility] 01-15-2024 10:15-0400 Body mass index (BMI) [Ratio] 41.5 kg/m2 [facility] 01-15-2024 10:15-0400 Body temperature 97.3 [degF] [facility] 01-15-2024 10:15-0400 Body weight 135.17 kg [facility] 01-15-2024 10:15-0400 Heart rate 75 /min [facility] 01-15-2024 10:15-0400 SaO2% (BldA) [Mass fraction] 98 % [facility] 08-25-2023 09:51-0400 Diastolic blood pressure 98 mm[Hg] [facility] 08-25-2023 09:51-0400 Systolic blood pressure 138 mm[Hg] [facility] 08-25-2023 09:44-0400 Body height 177.8 cm [facility] 08-25-2023 09:44-0400 Body mass index (BMI) [Ratio] 43 kg/m2 [facility] 08-25-2023 09:44-0400 Body temperature 97.1 [degF] [facility] 08-25-2023 09:44-0400 Body weight 136.07 kg [facility] 08-25-2023 09:44-0400 Heart rate 78 /min [facility] 08-25-2023 09:44-0400 SaO2% (BldA) [Mass fraction] 96 % [facility] 04-28-2023 09:55-0500 Body height 177.8 cm Savanah Cuello Other [facility] Other 04-28-2023 09:55-0500 Body mass index (BMI) [Ratio] 42.32 kg/m2 Savanah Cuello Other [employer] Other 04-28-2023 09:55-0500 Body temperature 97.5 [degF] Savanah Cuello Other [employer] Other 04-28-2023 09:55-0500 Body weight 133.81 kg Savanah Cuello Other [employer] Other 04-28-2023 09:55-0500 Diastolic blood pressure 97 mm[Hg] Savanah Cuello Other [employer] Other 04-28-2023 09:55-0500 Respiratory rate 18 /min Savanah Cuello Other [employer] Other 04-28-2023 09:55-0500 SaO2% (BldA) [Mass fraction] 96 % Savanah Cuello Other [employer] Other 04-28-2023 09:55-0500 Systolic blood pressure 150 mm[Hg] Savanah Cuello Other [employer] Other 07-29-2022 10:00-0400 Body height 177.8 cm Eze Marcia Other [employer] Other 07-29-2022 10:00-0400 Body mass index (BMI) [Ratio] 41.75 kg/m2 Eze Marcia Other [employer] Other 07-29-2022 10:00-0400 Body temperature 97 [degF] Eze Marcia Other [employer] Other 07-29-2022 10:00-0400 Body weight 132 kg Eze Marcia Other [employer] Other 07-29-2022 10:00-0400 Diastolic blood pressure 62 mm[Hg] Eze Marcia Other [employer] Other 07-29-2022 10:00-0400 Respiratory rate 18 /min Eze Marcia Other [employer] Other 07-29-2022 10:00-0400 SaO2% (BldA) [Mass fraction] 98 % Eze Marcia Other [employer] Other 07-29-2022 10:00-0400 Systolic blood pressure 122 mm[Hg] Eze Marcia Other [employer] Other 03-31-2022 18:15-0500 Body height 177.8 cm Stormy Garcíaault Other [employer] Other 03-31-2022 18:15-0500 Body mass index (BMI) [Ratio] 38.74 kg/m2 Stormy Garcíaault Other [employer] Other 03-31-2022 18:15-0500 Body temperature 97.9 [degF] Stormy White Other [employer] Other 03-31-2022 18:15-0500 Body weight 122.47 kg Stormy Garcíaault Other [employer] Other 03-31-2022 18:15-0500 Respiratory rate 18 /min Stormy Garcíaault Other [employer] Other 03-31-2022 18:15-0500 SaO2% (BldA) [Mass fraction] 95 % Stormy Garcíaault Other [facility] Other 01-28-2022 10:00-0400 Body height 177.8 cm Eze Marcia Other [facility] Other 01-28-2022 10:00-0400 Body mass index (BMI) [Ratio] 38.88 kg/m2 Eze Marcia Other [facility] Other 01-28-2022 10:00-0400 Body temperature 97.1 [degF] Eze Marcia Other [facility] Other 01-28-2022 10:00-0400 Body weight 122.93 kg Eze Marcia Other [facility] Other 01-28-2022 10:00-0400 Diastolic blood pressure 78 mm[Hg] Eze Marcia Other [facility] Other 01-28-2022 10:00-0400 Respiratory rate 20 /min Eze Marcia Other [facility] Other 01-28-2022 10:00-0400 SaO2% (BldA) [Mass fraction] 98 % Eze Marcia Other [facility] Other 01-28-2022 10:00-0400 Systolic blood pressure 124 mm[Hg] Eze Marcia Other [facility] Other 09-24-2021 11:00-0400 Body height 177.8 cm Eze Marcia Other [facility] Other 09-24-2021 11:00-0400 Body mass index (BMI) [Ratio] 37.16 kg/m2 Eze Marcia Other [facility] Other 09-24-2021 11:00-0400 Body temperature 98.4 [degF] Eze Marcia Other [facility] Other 09-24-2021 11:00-0400 Body weight 117.48 kg Eze Marcia Other [facility] Other 09-24-2021 11:00-0400 Diastolic blood pressure 82 mm[Hg] Eze Marcia Other [facility] Other 09-24-2021 11:00-0400 Respiratory rate 20 /min Eze Marcia Other [facility] Other 09-24-2021 11:00-0400 SaO2% (BldA) [Mass fraction] 96 % Eze Marcia Other [facility] Other 09-24-2021 11:00-0400 Systolic blood pressure 128 mm[Hg] Eze Marcia Other [facility] Other 07-23-2021 09:15-0400 Body height 177.8 cm Eze Marcia Other [facility] Other 07-23-2021 09:15-0400 Body mass index (BMI) [Ratio] 40.75 kg/m2 Eze Marcia Other [facility] Other 07-23-2021 09:15-0400 Body temperature 97.6 [degF] Eze Marcia Other [facility] Other 07-23-2021 09:15-0400 Body weight 128.82 kg Eze Marcia Other [facility] Other 07-23-2021 09:15-0400 Diastolic blood pressure 82 mm[Hg] Eze Marcia Other [facility] Other 07-23-2021 09:15-0400 Respiratory rate 20 /min Eze Marcia Other [facility] Other 07-23-2021 09:15-0400 SaO2% (BldA) [Mass fraction] 97 % Eze Marcia Other [facility] Other 07-23-2021 09:15-0400 Systolic blood pressure 124 mm[Hg] Eze Marcia Other [facility] Other 05-14-2021 12:15-0500 Body height 177.8 cm Eze Marcia Other [facility] Other 05-14-2021 12:15-0500 Body mass index (BMI) [Ratio] 40.89 kg/m2 Eze Marcia Other [facility] Other 05-14-2021 12:15-0500 Body temperature 97.8 [degF] Eze Marcia Other [facility] Other 05-14-2021 12:15-0500 Body weight 129.28 kg Eze Marcia Other [facility] Other 05-14-2021 12:15-0500 Diastolic blood pressure 88 mm[Hg] Eze Marcia Other [facility] Other 05-14-2021 12:15-0500 Respiratory rate 20 /min Eze Marcia Other [facility] Other 05-14-2021 12:15-0500 SaO2% (BldA) [Mass fraction] 97 % Eze Marcia Other [facility] Other 05-14-2021 12:15-0500 Systolic blood pressure 132 mm[Hg] Eze Marcia Other [facility] Other Encounters Encounter Date Encounter Type Care Provider Facility Start: 08-09-2024 End: 08-09-2024 ambulatory Eze Travis. Marcia Facility:[facility] Start: 07-23-2024 End: 07-23-2024 ambulatory Eze Travis. Marcia DO Work Phone: [facility] Work Phone: Start: 07-23-2024 End: 07-23-2024 Patient encounter procedure Eze Marcia DO Work Phone: [facility] Phys[facility] [place] Work Phone: Start: 05-30-2024 End: 05-30-2024 ambulatory Eze Travis. Marcia DO Work Phone: [facility] Work Phone: Start: 05-30-2024 End: 05-30-2024 Patient encounter procedure Eze Marcia DO Work Phone: [facility] Phys[facility] [place] Work Phone: Start: 05-15-2024 End: 05-15-2024 ambulatory Eze M. Marcia DO Work Phone: [facility] Work Phone: Start: 05-15-2024 End: 05-15-2024 Patient encounter procedure Eze Marcia DO Work Phone: [facility] Physician [facility] Work Phone: Start: 05-03-2024 End: 05-03-2024 ambulatory Eze M. Marcia DO Work Phone: [facility] Work Phone: Start: 05-03-2024 End: 05-03-2024 Patient encounter procedure Eze Marcia DO Work Phone: [facility] Work Phone: Start: 04-18-2024 End: 04-18-2024 Patient encounter procedure Eze Marcia DO Work Phone: [facility] [address] [facility] Work Phone: Start: 04-18-2024 End: 04-18-2024 ambulatory Eze Robles. Marcia Facility:[facility] Start: 02-23-2024 End: 02-23-2024 ambulatory [facility] Work Phone: Start: 02-23-2024 End: 02-23-2024 Patient encounter procedure [facility] Work Phone: Start: 02-05-2024 End: 02-05-2024 ambulatory [facility] Work Phone: Start: 02-05-2024 End: 02-05-2024 Patient encounter procedure [facility] Phys[facility] Work Phone: Start: 01-15-2024 End: 01-15-2024 ambulatory EZE M MARCIA [facility] Work Phone: Start: 01-15-2024 End: 01-15-2024 Patient encounter procedure [facility] [place] Work Phone: Start: 08-25-2023 End: 08-25-2023 ambulatory [facility] Work Phone: Start: 08-25-2023 End: 08-25-2023 Encounter for general adult medical examination without abnormal findings [facility] Start: 08-25-2023 End: 08-25-2023 Patient encounter procedure [facility] Work Phone: Start: 05-26-2023 End: 05-26-2023 ambulatory Eze Marcia Other [facility] Other Start: 05-26-2023 Telephone encounter Eze Marcia [facility] Start: 04-28-2023 End: 04-28-2023 ambulatory Savanah Khushboo Other [facility] Other Start: 04-28-2023 Office outpatient vi sit 15 minutes Savanah Khushboo [facility] [place] Start: 04-28-2023 Telephone encounter Eze Marcia [facility] [place] Start: 07-29-2022 End: 07-29-2022 ambulatory Eze Marcia Other [facility] Other Start: 07-29-2022 Office outpatient vi sit 15 minutes Eze Marcia [facility] Start: 04-05-2022 End: 04-05-2022 ambulatory Eze Marcia Other [facility] Other Start: 04-05-2022 Telephone encounter Eze Marcia [facility] Start: 03-31-2022 End: 03-31-2022 ambulatory Stormyaung White Other [facility] Other Start: 03-31-2022 Office outpatient vi sit 25 minutes Stormy Christopher [facility] Start: 03-24-2022 End: 03-24-2022 ambulatory Eze Marcia Other [facility] Other Start: 03-24-2022 Telephone encounter Eze Marcia [facility] Start: 01-28-2022 End: 01-28-2022 ambulatory Eze Marcia Other [facility] Other Start: 01-28-2022 Office outpatient vi sit 15 minutes Eze Marcia [facility] Start: 12-31-2021 End: 12-31-2021 ambulatory Eze Marcia Other [facility] Other Start: 12-31-2021 Telephone encounter Eze Marcia [facility] Start: 11-08-2021 End: 11-08-2021 ambulatory Eze Marcia Other [facility] Other Start: 11-08-2021 Telephone encounter Eze Marcia [facility] Start: 09-24-2021 End: 09-24-2021 ambulatory Eze Marcia Other [facility] Other Start: 09-24-2021 Office outpatient vi sit 15 minutes Eze Marcia [facility] Start: 08-06-2021 End: 08-06-2021 ambulatory Eze Marcia Other [facility] Other Start: 08-06-2021 Telephone encounter Eze Marcia [facility] Start: 07-23-2021 End: 07-23-2021 ambulatory Eze Marcia Other [facility] Other Start: 07-23-2021 Office outpatient vi sit 15 minutes Eze Marcia [facility] Start: 07-23-2021 Telephone encounter Eze Marcia [facility] Start: 05-14-2021 End: 05-14-2021 ambulatory Eze Marcia Other [facility] Other Start: 05-14-2021 Office outpatient vi sit 25 minutes Ezeradha AbadMarcia [facility] [place] Start: 04-28-2020 End: 04-29-2020 Patient encounter procedure EZE Travis MARCIA Facility:[facility] Start: 04-27-2020 End: 04-27-2020 Patient encounter procedure EZE M MARCIA Facility: Procedures Date Procedure Procedure Detail Performing Clinician Start: 05-30-2024 Plain chest X-ray Eze Marcia DO Work Phone: Start: 04-18-2024 MRI of right knee Eze Marcia DO Work Phone: Start: 04-28-2020 End: 04-28-2020 Microscopic examination of blood, culture EZE MARCIA Comment on above: Performed By: #### A CETON #### [facility] [address] [place] [id number] Rolanda Watts Performed By: #### B [id number] #### [facility] [address] [id number] Rolanda Watts Plan of Treatment Date Care Activity Detail Author Comprehensive metabo lic 2000 panel - Serum or Plasma [facility] Immunizations Immunization Date Immunization Notes Care Provider Arnav apple NEGATED: Highlighted row has not occurred!10-07-2019 influenza, injectable, quadrivalent, contains preservative Patient Objection Eze Marcia Other [facility] Other NEGATED: Highlighted row has not occurred!04-11-2018 influenza, injectable, quadrivalent, contains preservative Patient Objection Eze Marcia Other [facility] Other Payers Date Payer Category Payer [employer] ( [employer] others) [id number] 2024 Self-pay [id number] 2024 [employer] ( [employer] others) 2024 [employer] others) [id number] 3.19 1973 Unknown [id number] 1973 Unknown [id number] 1973 Unknown [id number] 1959 [employer] ( and others) [id number] Unknown [id number] Unknown [id number] Unknown [id number] Social History Date Type Detail Facility Unknown if ever smoked [facility] Other Sex Assigned At [facility] Start: 09-30-2021 End: 02-23-2024 Tobacco smoking status NHIS Ex-smoker (finding) [facility] Start: 1975 Sex Assigned At Male [facility] Tobacco smoking status No Smokin g Status Entered [facility] Start: 05-03-2024 End: 07-23-2024 Sex Male (finding) [facility] Medical Equipment Procedure Code Equipment Code Equipment Origin al Text Equipment Identifier Dates Repair, hernia, umbilical Abdominal hernia surgical mesh, composite-polymer ([id number] [facility] Start: 09-30-2021 Clinical Notes 12-23-2017 to 05-03-2024 Note Date & Type Note Facility 05-03-2024 Evaluation note Diagnosis Onset Date Resolution Primary osteoarthritis of left knee acute May 03 8:58am Primary osteoarthritis of right knee acute May 03 8:58am Primary osteoarthritis of left knee acute May 15 8:08am Primary osteoarthritis of right knee acute May 15 8:08am Pneumonitis acute May 30, 2024 2:26pm [facility] Work Phone: 1(954) 314-935201-10-2025 Evaluation note* Diagnosis Onset Date Resolution Status Admit Date Primary osteoarthritis of le ft knee acute May 03 8:58am Primary osteoarthritis of ri ght knee acute May 03 8:58am Primary osteoarthritis of le ft knee acute May 15 8:08am Primary osteoarthritis of ri ght knee acute May 15 8:08am Pneumonitis acute May 30, 2024 2:26pm Hypertension acute July 23, 10:15am [facility] Work Phone: 1(528) 644-794411-01-2024 Evaluation note* Diagnosis Onset Date Resolution Status Admit Date Low testosterone in male acute February 23, 2024 8:43am Cough noneactive February 23, 2024 8:43am Elevated vitamin B12 level noneactiv e February 23, 2024 8:43am Primary osteoarthritis of left knee acute May 03 8:58am Primary osteoarthritis of right knee acute May 03 8:58am Primary osteoarthritis of left knee acute May 15 8:08am Primary osteoarthritis of right knee acute May 15 8:08am [facility] Work Phone: 1(247) 176-340010-14-2024 Evaluation note* Diagnosis Onset Date Resolution Status Admit Date Primary osteoarthritis of left knee acute February 04 10:13am Primary osteoarthritis of right knee acute February 04 10:13am Low testosterone in male acute February 23, 2024 8:43am Cough noneactive February 23, 2024 8:43am Elevated vitamin B12 level noneactiv e February 23, 2024 8:43am Primary osteoarthritis of left knee acute May 03 8:58am Primary osteoarthritis of right knee acute May 03 8:58am [facility] Work Phone: 1(405) 387-463202-02-2024 Evaluation note* Encounter Date Diagnosis Assessment Notes Treatment Notes Treatment Clinical Notes May, Erectile dysfunction, unspecified erectile dysfunction type (ICD-10 - N52.9) [facility] Other 01-05-2024 Evaluation note* Encounter Date Diagnosis Assessment Notes Treatment Notes Treatment Clinical Notes Apr, Bronchitis (ICD-10 - J40) Drink plenty fluids, get plenty of rest. Take the doxycycline and prednisone as prescribed until gone for your sinus infection and bronchitis. Use the fluticasone nasal spray as prescribed until your symptoms of your sinus infection improved. Use the albuterol inhaler as prescribed as needed for cough or shortness of breath. Take the benzonatate capsules as prescribed as needed for cough. Take Tylenol or Motrin as needed for aches pains or fevers. You may return to work on Monday. Follow-up with your family physician if no improvement in 2 to 3 days Apr, Acute sinusitis, recurrence not specified, unspecified location (ICD-10 - J01.90) [facility] Other 04-07-2023 Evaluation note* Encounter Date Diagnosis Assessment Notes Treatment Notes Treatment Clinical Notes Jul, LPRD (laryngopharyngeal reflux disease) (ICD-10 - K21.9) Certainly no change today. Patient states he is doing much better. He is going to continue to follow with ENT. Call with any concerns. [facility] Other 12-08-2022 Evaluation note* Encounter Date Diagnosis Assessment Notes Treatment Notes Treatment Clinical Notes Mar, Hoarseness (ICD-10 - R49.0) Mar, Laryngitis (ICD-10 - J04.0) Symptoms of laryngitis is caused by viruses. Salt water gargles may help with discomfort. Take medications as directed. Cool mist humidifier, steaming up bathroom with shower may help with symptom relief. Follow up with primary care provider if no improvement of symptoms [facility] Other 12-01-2022 Evaluation note* Encounter Date Diagnosis Assessment Notes Treatment Notes Treatment Clinical Notes Mar, Difficulty sleeping (ICD-10 - G47.9) [facility] Other 10-07-2022 Evaluation note* Encounter Date Diagnosis Assessment Notes Treatment Notes Treatment Clinical Notes Jan, Difficulty sleeping (ICD-10 - G47.9) We will simply continue to monitor at this time. No other change today. Call with any concerns. Recheck in 6 months. [facility] Other 09-09-2022 Evaluation note* Encounter Date Diagnosis Assessment Notes Treatment Notes Treatment Clinical Notes Dec, Erectile dysfunction, unspecified erectile dysfunction type (ICD-10 - N52.9) [facility] Other 07-18-2022 Evaluation note* Encounter Date Diagnosis Assessment Notes Treatment Notes Treatment Clinical Notes Oct, Difficulty sleeping (ICD-10 - G47.9) [facility] Other 06-03-2022 Evaluation note* Encounter Date Diagnosis Assessment Notes Treatment Notes Treatment Clinical Notes Sep, Umbilical hernia without obstruction and without gangrene (ICD-10 - K42.9) Pt ok to proceed with surgery - no evidence of any HTN here today, or in the past. I will not pursue any imaging or blood work, as this does not appear to be required by surgery. [facility] Other 06-01-2022 Reason for visit NarrativeMedical Clearance - umbilical Hernia repair with Dr Lozano 09/[address] [facility], Fax Clearance [phone], Patient did not have any labs or imaging ordered, anesthesia requesting clearance due to mentioning seizures, saw [facility] 09/22/2021 - [facility]- did get clearance from [facility] Other 04-15-2022 Evaluation note* Encounter Date Diagnosis Assessment Notes Treatment Notes Treatment Clinical Notes Jul, Difficulty sleeping (ICD-10 - G47.9) [facility] Other 04-01-2022 Evaluation note* Encounter Date Diagnosis Assessment Notes Treatment Notes Treatment Clinical Notes Jul, Umbilical hernia without obstruction and without gangrene (ICD-10 - K42.9) Will send Pt back to Gen Surg for review. He voices agreement and understanding. [facility] Other 01-21-2022 Evaluation note* Encounter Date Diagnosis Assessment Notes Treatment Notes Treatment Clinical Notes Apr, Change in voice (ICD-10 - R49.9) Pt to monitor - call with results - consider seeing ENT again if persists. Apr, Difficulty sleeping (ICD-10 - G47.9) E Rx sent. Patient to call with results. Certainly we could increase back to the 100 mg dose if he feels it is necessary. Apr, Ocular migraine (ICD-10 - G43.109) Lengthy discussion with patient today that these are benign in nature, and I would like him to do some research and review on his own regarding these. If there are continued issues with this, we could always get him to see ophthalmology. [facility] Other 09-01-2018 History general Narrative - Reported* Type Description Date Medical History Seizures - partial frontal Surgical History Hernia - Navel and Groin 2000, 99 Surgical History vasectomy 2010 Surgical History lt vocal cord nodule 12/2017 [facility] Other 09-01-2018 History general Narrative - Reported* Type Description Date Medical History Seizures - partial frontal Surgical History Hernia - Navel and Groin 2000, 99 Surgical History vasectomy 2010 Surgical History lt vocal cord nodule 12/2017 Surgical History Umbilical Hernia Surgery [facility] Other Evaluation + Plan note No data available for this section [facility] Other Evaluation note* Diagnosis Onset Date Resolution Status Fatigue acute Encounter for wellness examination in adult noneactive [facility] Work Phone: Evaluation noteNo assessment information available [facility] Work Phone: Evaluation note* Diagnosis Onset Date Resolution Status Bilateral knee pain noneacti ve [facility] Work Phone: Evaluation note* Diagnosis Onset Date Resolution Status Bilateral knee pain noneacti ve Primary osteoarthritis of left knee acute Primary osteoarthritis of right knee acute Low testosterone in male acu te Elevated vitamin B12 level n oneactive [facility] Work Phone: Hospital Discharge instructions No data available for this section [facility] Progress note No data available for this section [facility] Reason for visit Calista, would like a referral [facility] Other Summary Purpose Family History No Family History Records Found Relationship Condition Age at Onset Recorded Date/T son father Hypertension Unknown Not Specified Malignant neoplasm of uterus Unknown father Myocardial infarction Unknown Heart disease Unknown Unknown Relationship Condition Age at Onset Recorded Date/T son father Hypertension Unknown mother Malignant neoplasm of uterus Unknown father Myocardial infarction Unknown Heart disease Unknown Unknown Advance Directives No Advanced Directives Records Found Advance Directive Response Recorded Date/ Time Advance Directives No December 18, 2017 2:10pm Advance Directive Response Recorded Date/ Time Advance Directives No December 18, 2017 1:10pm Chief Complaint and Reason for Visit Chief Complaint wellness Reason for Visit Fatigue Encounter for wellness examination in adult Chief Complaint bilateral knee pain Chief Complaint bilateral knee pain CONSULT DR. MARCIA EMANUEL KNEE [place]IN, [place] Reason for Visit Bilateral knee pain Chief Complaint bilateral knee pain CONSULT DR. MARCIA EMANUEL KNEE PAIN, [place] 6 months Reason for Visit Bilateral knee pain Primary osteoarthritis of left knee Primary osteoarthritis of right knee Low testosterone in male Elevated vitamin B12 level Chief Complaint Admit Date CONSULT DR. MARCIA EMANUEL KNEE [place]IN, [place] February 05, 2024 10:13am 6 months February 23, 2024 8 :43am M23.91 April 18, 2024 7:00am MRI [facility] May 03, 2024 8 :58am Reason for Visit Admit Date Primary osteoarthritis of left knee Octo price 2023 10:13am Primary osteoarthritis of right knee Oct gautam 2023 10:13am Low testosterone in male February 22, 2 024 8:43am Cough February 23, 2024 8 :43am Elevated vitamin B12 level February 23, 2024 8:43am Primary osteoarthritis of left knee Jah angel 2024 8:58am Primary osteoarthritis of right knee Schuyler uary 2024 8:58am Chief Complaint Admit Date 6 months February 23, 2024 8 :43am M23.91 April 18, 2024 7:00am [facility] May 03, 2024 8 :58am BILATERAL ZILRETTA INJECTIONS May 152024 8:08am Reason for Visit Admit Date Low testosterone in male November 1st, 2 024 8:43am Cough February 23, 2024 8 :43am Elevated vitamin B12 level February 23, 2024 8:43am Primary osteoarthritis of left knee Jah polo2024 8:58am Primary osteoarthritis of right knee Schuyler ua2024 8:58am Primary osteoarthritis of left knee Jah angel 2024 8:08am Primary osteoarthritis of right knee Schuyler garrett 2024 8:08am Chief Complaint Admit Date M23.91 April 18, 2024 7:00am [facility] May 03, 2024 8 :58am BILATERAL ZILRETTA INJECTIONS May 152024 8:08am cough May 30, 2024 2 :26pm R06.2 - Wheezing May 30, 2024 2 :50pm Reason for Visit Admit Date Primary osteoarthritis of left knee Jah [id number] 8:58am Primary osteoarthritis of right knee Schuyler 2024 8:58am Primary osteoarthritis of left knee Jah angel 2024 8:08am Primary osteoarthritis of right knee Schuyler bush 2024 8:08am Pneumonitis May 30, 2024 2 :26pm Chief Complaint Admit Date [facility] May 03, 2024 8 :58am BILATERAL ZILRETTA INJECTIONS May 152024 8:08am cough May 30, 2024 2 :26pm R06.2 - Wheezing May 30, 2024 2 :50pm Elevated BP Concerns July 23, 2024 10: 15am Reason for Visit Admit Date Primary osteoarthritis of left knee Jah [email or web address] 8:58am Primary osteoarthritis of right knee Schuyler 2024 8:58am Primary osteoarthritis of left knee Jah angel 2024 8:08am Primary osteoarthritis of right knee Schuyler garrett 2024 8:08am Pneumonitis May 30, 2024 2 :26pm Hypertension July 23, 2024 10:1 5am Additional Source Comments (unrecognized sect ion and content) No Status Records FoundNo Status Records FoundNo Status Records Found INFORMATION SOURCE (unrecogn ized section and content) DATE CREATED AUTHOR 05/07/2020 [facility] DATE CREATED AUTHOR AUTHOR'S ORGANIZ ATION 02/01/2024 [facility] DATE CREATED AUTHOR AUTHOR'S ORGANIZ ATION 08/11/2024 [facility] REASON FOR VISIT (unrecogniz ed section and content) loss of voice- denies any ot her symptoms, patient says he missed last 2 days of work d/t losing his voice does burn/ hurt minimally-started last week- had that surgery on vocal cords 2018 [facility] but doesn't follow with him anymore, he does mention that a few weeks ago, he had achy legs, hard to sleep- no other sx's just didn't feel right, does report recent headaches and rainbow prisms in my eyes intermittent- last for 20 minutes or so.. he attributes the headaches to not having any caffeine, since he switched his diet, he hasn't been taking trazodone lately, BUT is wanting an rx again because last few months - normally falls asleep ok but wakes up frequently throughout the night- [facility] Referralrefill-trazodonerefill trazadoneRefill Cialis6 month Follow uprefill trazodoneloss of voicerequest for an ENT referral6 month Follow up, has been seeing [facility] [place] for this intermittent/ ongoing issue with hoarsness- scope showed looked like a firecracker went off in back of throat says from GERD- instructed to take nexium- next follow up PRN (just saw 07/26/22)COUGH, CONGESTIONUC FYIrefill tadalafil Care Teams (unrecognized sec tion and content) Team Status: Active Member Role Status Dates Eze Kennedy DO Primary Care Provider Active Team Status: Inactive Member Role Status Dates Eze Kennedy DO Primary Care Provid er, Attending Provider Active Start: August 25, 2023 End: August 25, 2023 Team Status: Inactive Member Role Status Dates Eze Kennedy DO Primary Care Provid er, Attending Provider Active Start: January 15, 2024 End: January 15, 2024 Team Status: Inactive Member Role Status Dates Eze Kennedy DO Primary Care Provider Active Start: February 05, 2024 End: February 05, 2024 Edward Barnard , DO Attending Provider Active S tart: February 05, 2024 End: February 05, 2024 Team Status: Inactive Member Role Status Dates Eze Kennedy DO Primary Care Provid er, Attending Provider Active Start: February 23, 2024 End: February 23, 2024 Team Status: Inactive Member Role Status Dates zEe Kennedy DO Primary Care Provider Active Start: April 18, 2024 End: April 18, 2024 Edward Barnard , DO Attending Provider Active S tart: April 18, 2024 End: April 18, 2024 Team Status: Inactive Member Role Status Dates Eze Kennedy DO Primary Care Provider Active Start: May 03, 2024 End: May 03, 2024 Edward Barnard , DO Attending Provider Active S tart: May 03, 2024 End: May 03, 2024 Team Status: Inactive Member Role Status Dates Eze Kennedy DO Primary Care Provider Active Start: May 15, 2024 End: May 15, 2024 Edward Barnard , DO Attending Provider Active S tart: May 15, 2024 End: May 15, 2024 Team Status: Inactive Member Role Status Dates Eze Kennedy DO Primary Care Provider Active Start: May 30, 2024 End: May 30, 2024 Ginger Elder APRN Attending Provider Active S tart: May 30, 2024 End: May 30, 2024 Team Status: Active Member Role Status Dates Eze Kennedy DO Primary Care Provider Active Start: May 30, 2024 Ginger Elder APRN Attending Provider Active S tart: May 30, 2024 Team Status: Inactive Member Role Status Dates Eze Kennedy DO Primary Care Provid er, Attending Provider Active Start: July 23, 2024 End: July 23, 2024 Goals (unrecognized section and content) Goals may be documented in a n alternate section FOR RECORDS PERTAINING TO PATIENTS WHO ARE OR HAVE BEEN ENROLLED IN A CHEMICAL DEPENDENCY/SUBSTANCEABUSE PROGRAM, SOME INFORMATION MAY BE OMITTED. This clinical summary was aggregated from multiple sources. Caution should be exercised in using it in the provision of clinical care. This summary normalizes information from multiple sources, and as a consequence, information in this document may materially change the coding, format and clinical context of patient data. In addition, data may be omitted in some cases. CLINICAL DECISIONS SHOULD BE BASED ON THE PRIMARY CLINICAL RECORDS. [facility]. provides no warranty or guarantee of the accuracy or completeness of information in this document.
[2024-08-12] MEDS: ADACEL DIPH,PERTUSS(ACELL),TET VAC/PF 0.5 ML ADULT SYRINGE IM (08:40)
== END 2024-08-12 08:40 | disposition home or self-care (01) ==
PROVIDERS: Emergency Provider Emergency Medicine; PCP Family Medicine
DX: S61.012A Laceration without foreign body of left thumb without damage to nail, initial encounter (principal); W26.8XXA Contact with other sharp object(s), not elsewhere classified, initial encounter; Z23 Encounter for immunization
CPT/HCPCS: 29130; 90471; 90715; 99284

== ENCOUNTER 2024-11-01 08:12 | Emergency (ER) | payer OTHER, SELFPAY ==
[2024-11-01 08:18] VITALS: BP 143/91; PULSE 78; TEMP 36.6; O2SAT 95; BMI 38.2
--- OUTSIDE RECORDS SUMMARY | 2024-11-01 08:20 | XMS_ITS | CCD ---
Author Organization [facility] Care Team Providers Care Urology Teacher Name Role Phone LIBERTY KENNEDYH M Primary Care Unavailable PAY, BROWN Attending Unavailable PAY, BROWN Consulting Unavailable PAY, BROWN Admitting Unavailable JOHNCHALLAN GORDILLO Consulting Unavailable Maurice Leahy Consulting Unavailable MARCIA, EZE M Attending Unavailable MARCIA, EZE M Consulting Unavailable MARCIA, EZE M Admitting Unavailable Marcia, Eze Unavailable Stormy White Unavailable Savanah Cuello Unavailable MARCIA, EZE M Primary Care Physician MARCIA, EZE M Attending Unavailable MARCIA, EZE M Admitting Unavailable Marcia DO, Eze M. Primary Care Provider Edward Barnard DO Attending Provider Ginger Elder APRN Attending Provider [phone] Marcia DO Eze M. Primary Care Provider Ginger Elder APRN Attending Provider Marcia, Eze M. Primary Care Unavailable Edward Barnard Attending Unavailable Edward Barnard Admitting Unavailable Marcia, Eze M. Primary Care Unavailable Ginger Elder Attending Unavailable Ginger Elder Admitting Unavailable Edward Barnard Attending Unavailable Edward Barnard Admitting Unavailable Marcia, Eze M. Primary Care Unavailable Edward Barnard DO Attending Provider [phone] Marcia Liberty MARIEh Travis. Primary Care Provider Medications Current Medications Medication Drug Class(es) Dates Sig (Normalized) Sig (Original) acetaminophen 500 mg / diphenhydrAMINE hydrochloride 25 mg oral tablet (8 sources) Histamine-1 Receptor Antagonist take 1 tablet by mouth every twenty-four hours Tylenol PM Extra Strength 500-25 MG 1 tablet at bedtime as needed Orally Once a day Active celecoxib 200 mg oral capsule (16 sources) Nonsteroidal Anti-inflammator y Drug Start: 5 End: 5 take 1 capsule by mouth twice daily Celecoxib 200 mg capsule Active 200 MG PO Twice daily 180 90 May 24, 2024 11:05am cholecalciferol 0.075 mg oral tablet (5 sources) Vitamin D Start: 5 take 1 tablet by mouth once daily Cholecalciferol (Vitamin D3) 75 mcg (3,000 unit) tablet Active 75 MCG PO Daily July 23, 2024 12:00am doxycycline hyclate 100 mg oral tablet (3 sources) Tetracycline-cla ss Drug Start: 4 take 1 tablet by mouth every twelve hours Doxycycline Hyclate 100 MG 1 tablet Orally Twice a day for 10 day(s) Apr, Active hydroCHLOROthiazide 12.5 mg oral tablet (2 sources) Thiazide Diuretic Start: 5 take 1 tablet by mouth once daily Hydrochlorothiazide 12.5 mg tablet Active 12.5 MG PO Daily August 23, 2024 12:00am losartan potassium 100 mg oral tablet (14 sources) Angiotensin 2 Receptor Loc Start: 5 take 1 tablet by mouth once daily Losartan 100 mg tablet Active 0 .ROUTE .COMPLEX September 02, 2024 5:13pm TAKE 1 TABLET BY MOUTH EVERY DAY Start: 08-05-2024 End: 09-02-2024 take 1 tablet by mouth once daily Losartan 100 mg tablet Discontinued 100 MG PO Daily 30 August 05, 2024 4:58pm September 02, 2024 5:13pm Start: 07-31-2024 End: 08-05-2024 take 2 tablets by mouth once daily Losartan 25 mg tablet Discontinued 50 MG PO Daily 60 July 31, 2024 11:19am August 05, 2024 4:58pm Start: 07-23-2024 End: 07-31-2024 take 1 tablet by mouth once daily Losartan 25 mg tablet Discontinued 25 MG PO Daily 30 July 23, 2024 12:00am July 31, 2024 11:19am melatonin 10 mg extended release oral tablet (4 sources) Melatonin 10 MG as directed Orally Active Multivitamin tablet (5 sources) Start: take 1 tablet by mouth once daily Multivitamin tablet Active 1 TAB PO Daily July 23, 2024 12:00am [place]-3 Fatty Acids 1,000 mg capsule (5 sources) Start: take 1 capsule by mouth once daily [place]-3 Fatty Acids 1,000 mg capsule Active 1000 MG PO Daily July 23, 2024 12:00am tadalafil 20 mg oral tablet (20 sources) Phosphodiesterase 5 Inhibitor Start: Tadalafil 20 mg tablet Active 20 MG [...] 02-13-2024 End: 02-22-2024 Tadalafil Discontinued 0 .RO [place] .COMPLEX February 13, 2024 1:30pm February 22, 2024 2:42pm TAKE 1 TABLET EVERY 36 HOURS DIRECTED Start: 08-28-2020 End: 02-13-2024 Tadalafil 20 mg tablet Disco ntinued 20 MG PO September 17, 2021 12:00am February 13, 2024 1:30pm 60 actuat testosterone 20.25 mg/actuat topical gel (8 sources) Androgen Start: 05-10-2024 Testosterone (Androgel) 20.25 [...] Start: 05-14-2021 take 1 tablet by cl th every twenty-four hours traZODone HCl 50 MG 1 tablet at bedtime as needed Orally Once a day for 30 day(s) Apr, Active Start: 05-11-2018 End: 08-17-2023 take 1 tablet by mouth once daily at bedtime Trazodone 100 mg tablet Discontinued 100 MG PO Daily at bedtime September 17, 2021 12:00am August 17, 2023 12:56pm Turmeric extract (5 sources) Start: 07-23-2024 take 1 capsule by mo ut once daily Turmeric 400 mg capsule Active 400 MG PO Daily July 23, 2024 12:00am Completed/Discontinued Medications Medication Drug Class(es) Dates Sig (Normalized) Sig (Original) acetaminophen 325 mg / HYDROcodone bitartrate 5 mg oral tablet (13 sources) Opioid Agonist Start: 09-30-2021 End: 08-25-2023 take 1 tablet by mouth every six hours as needed for pain Hydrocodone-Acetam inophen 5-325 mg tablet Discontinued 1 TAB PO Q6H as needed for pain 28 7 September 30, 2021 August 25, 2023 9:47am [id number] 200 actuat albuterol 0.09 mg/actuat metered dose inhaler (16 sources) beta2-Adrenergic Agonist Start: 08-22-2023 End: 05-30-2024 [...] Albuterol Sulfate 90 mcg/actuation HFA aerosol inhaler (7 sources) Start: 05-30-2024 End: 07-23-2024 Albuterol Sulfate [...] 2024 12:00am azithromycin 250 mg oral tablet (7 sources) Macrolide Antimicrobial Start: 05-30-2024 End: 07-23-2024 Azithromycin 250 mg tablet Discontinued 0 PO .COMPLEX 6 May 30, 2024 1:00am July 23, 2024 10:21am For 250 mg dose pack: take 500 mg today (day 1), then 250 mg for 4 days (days 2-5) PO benzonatate 200 mg oral capsule (16 sources) Non-narcotic Antitussive Start: 08-22-2023 End: 08-25-2023 take 1 capsule by mouth three times daily Benzonatate 200 mg capsule Discontinued 1 CAP PO Three times daily August 22, 2023 12:00am August 25, 2023 9:46am [employer] capsule Orally Three times a day; Note: Source Status: Start; Refills: 0; Provider: Khushboo Arnold Start: 04-28-2023 take 1 capsule by mo [facility] every eight hours Benzonatate 200 MG 1 capsule Orally Three times a day Apr, Active esomeprazole 20 mg delayed release oral capsule (17 sources) Proton Pump Inhibitor Start: 08-22-2023 End: [...] propionate 0.05 mg/actuat metered dose nasal spray (16 sources) Corticosteroid Start: 08-22-2023 End: 05-30-2024 take [...] day Not-Taking/PRN meloxicam 15 mg oral tablet (11 sources) Nonsteroidal Anti-inflammatory Drug Start: 01-15-2024 End: 02-05-2024 take 1 tablet by mouth once daily Meloxicam 15 mg tablet Discontinued 15 MG PO Daily January 15, 2024 12:00am February 05, 2024 10:31am methylPREDNISolone 4 mg oral tablet (9 sources) Corticosteroid Start: 05-30-2024 End: 07-23-2024 take 1 tablet by mouth once Methylprednisolone (Medrol (Cipriano)) 4 mg tablets,dose pack Discontinued 0 PO per package directions May 30, 2024 1:00am July 23, 2024 10:21am PO PER PKG DIR Start: 03-31-2022 methylPREDNISo lone 4 MG as directed Orally Once a day for 6 days Mar, Active predniSONE 20 mg oral tablet (13 sources) Start: 02-23-2024 End: 05-03-2024 take 3 [...] gram (1.62 %) gel in metered-dose pump (12 sources) Start: 09-21-2023 End: 05-10-2024 Testosterone (Androgel) [...] pump Active 1 PUMP TOPICAL Daily 75 30 May 30th, 2024 12:00am apply 1 pump amount over max area of ONE upper arm and shoulder Problems Active Problems Problem Classification Problem Date Documented Date Episodic/Chronic Anxiety disorders (4 sources) Anxiety; Translations: [Anxiety disorder, unspecified] 08-23-2024 Chronic Chronic obstructive pulmonary disease and bronchiectasis (1 source) Bronchitis, not specified as acute or chronic Episodic Esophageal disorders (5 sources) Laryngopharyngeal reflux; Translations: [Gastro-esophageal reflux disease without esophagitis] Chronic Essential hypertension (12 sources) Hypertensive disorder; Translations: [Essential (primary) hypertension] [...] knee] Onset: 04-18-2024 Chronic Malaise and fatigue (14 sources) Fatigue; Translations: [Other fatigue] 08-25-2023 Episodic Osteoarthritis (20 sources) Osteoarthritis of left knee joint; Translations: [Unilateral primary osteoarthritis, left knee] Onset: 08-09-2024 02-05-2024 Chronic Other lower respiratory disease (2 sources) Cough; Translations: [Cough] 02-23-2024 Episodic Other lower respiratory disease (7 sources) Dyspnea; Translations: [Shortness of breath] 05-30-2024 Episodic Other lower respiratory disease (7 sources) Wheezing; Translations: [Wheezing] 05-30-2024 Episodic Other lower respiratory disease (7 sources) Pneumonitis; Translations: [Other disorders of lung] 05-30-2024 Episodic Other lower respiratory disease (6 sources) Other disorders of lung; Translations: [Pneumonia, [...] lower limb] Chronic Other nervous system disorders (13 sources) Acute postoperative pain; Translations: [Other acute postprocedural pain] 09-30-2021 Episodic Other non-traumatic joint disorders (2 sources) Pain in right knee; Translations: [Pain in joint, lower leg] 01-15-2024 Episodic Other screening for suspected conditions (not mental disorders or infectious disease) (18 sources) Decreased testosterone level ; Translations: [Other [...] Test Name Value Interpretation Reference Range Facility X-ray reportOrdered By: Susan Guzman on 08-09-2024 Study report [facility] [address] [place] [address] XRay Report Signed Patient: Earle Mancia MR#: [id number] : 1975 Acct:[id number] Age/Sex: 49 / M ADM Date: 5 Loc: [facility] Room: Type: REG CLI Attending Dr: Edward Barnard DO Copies to: Edward Barnard DO~ Ordering Provider: Edward Barnard DO Date of [...] at the medial tibiofemoral joint compartments on bothsides. There is also minor tricompartment marginal spurring. There is a trace amount joint fluid on the right. No soft tissue swelling is noted. XR/XR knee BI 4V IMPRESSION: MILD DEGENERATIVE CHANGES, GREATEST MEDIALLY. Impression dictated by: Stefanie Guzman M.D.08/09/2024 11:48 AM Dictation Location: [place] [address] Transcribed By: [facility] 08/09/24 1148 Dictated By: Stefanie Guzman MD 08/09/24 1145 Signed By: 08/09/24 1148 [facility] Work Phone: XR knee BI 4Von 08-09-2024 XR knee BI 4V [facility] [address] [place] [address] XRay Report Signed Patient: Earle Mancia MR#: [id number] : 1975 Acct:[id number] Age/Sex: 49 / M ADM Date: 08/09/24 Loc: [facility] Room: Type: REG CLI Attending Dr: Edward [...] Stefanie Guzman M.D.08/09/2024 11:48 AM Dictation Location: [place] [address] Transcribed By: JAROD 08/09/24 1148 Dictated By: Stefanie Guzman MD 08/09/24 1145 Signed By: 08/09/24 1148 Normal [facility] X-ray reportOrdered By: Baron Joyner on 05-30-2024 Study report [facility] [place] [address] [place] [address] XRay Report Signed Patient: Earle Mancia MR#: [id number] : 1975 Acct:[id number] Age/Sex: 48 / M ADM Date: 5 Loc: [facility]DUCLY Room: Type: [facility] Attending Dr: Ginger Elder APRN Copies to: Ginger Elder APRN~ Ordering Provider: [...] Brown Joyner M.D.05/30/2024 3:10 PM Dictation Location: RADIO-PC-20 Transcribed By: JAROD 05/30/24 1510 Dictated By: Brown Joyner DO 05/30/24 1507 Signed By: 05/30/24 1510 [facility] XR chest 2V*on 05-30-2024 XR chest 2V* [facility] [place] [id number] XRay Report Signed Patient: Earle Mancia MR#: [id number] : 1975 Acct:[id number] Age/Sex: 48 / M ADM Date: 05/30/24 Loc: XDUCLY Room: Type: [facility] Attending Dr: Ginger Elder COLORIST Copies to: Ginger Elder APRN Ordering Provider: [...] Brown Joyner M.D.05/30/2024 3:10 PM Dictation Location: [facility]20 Transcribed By: JAROD 05/30/24 151 Dictated By: Brown Joyner DO 05/30/24 1507 Signed By: 05/30/24 1510 Normal [facility] MR knee RT wo conon 04-18-20 24 MR knee RT wo con [facility] [place] [id number] MRI Report Signed Patient: Earle Mancia MR#: [id number] : 1975 Acct:[id number] Age/Sex: 48 / M ADM Date: 04/18/24 Loc: [facility] Room: Type: [place] [facility] Attending Dr: Edward Barnard DO Copies [...] Shola Goff M.D.04/18/2024 9:01 AM Dictation Location: [place] [address] Transcribed By: [facility] 04/18/24900 Dictated By: Shola Goff II, MD 04/18/24855 Signed By: 04/18/24900 Normal [facility] XR Knee Complete 4+ Views [facility] 01-16-2024 XR Knee Complete 4+ Views Left [...] Spike Medina DO Transcribed by: MARISEL Technologist: Technical Comments Radiation Dose: Ka,r in mGy = na DAP = na Normal [facility] XR Knee Complete 4+ Views [facility] 01-16-2024 XR Knee Complete 4+ Views Right [...] Spike Medina DO Transcribed by: MARISEL Technologist: Technical Comments Radiation Dose: Ka,r in mGy = na DAP = na Normal [facility] COVID + FLU Quick Testingon 03-31-2022 SARS-CoV-2 (COVID-19) RNA AYDE+probe Ql (Unsp spec) Negative [facility] Other COVID + FLU Quick Testing Negative [facility] Other XR CHEST 1 Von 04-29-2020 XR CHEST 1 V [facility], 04/28/2020 9:27 PM EST COMPARISON: None CLINICAL HISTORY: COUGH with fever and positive Covid. FINDINGS: No acute cardiopulmonary disease. No pulmonary edema, pneumothorax, or pleural effusion. Normal heart size. No acute osseous abnormality. IMPRESSION: No acute abnormality identified. Electronically authenticated by: Maurice LEAHY Date: 2020-04-28 22:09 Normal [facility] ACETONE SERUMon 04-28-2020 ACETONE Negative Normal NEGATIVE [facility] Comment on above: Performed By: #### A CETON #### [facility] [address] [place], [place] [id number] Rolanda Stefanie CBC W MANUAL DIFFon 04-28-19 21 ATYPICAL LYMPH # 0.05 103/ul Normal [facility] Comment on above: Performed By: #### C PARISH #### [facility] [address] [place] [address] Rolanda Stefanie ATYPICAL LYMPH % 1 % Normal [facility] Comment on above: Performed By: #### C PARISH #### [facility] [address] [place], [place] [address] Rolanda Stefanie BAND # 0.3 103/ul Normal 0.0-0.3 [facility] Comment on above: Performed By: #### C PARISH #### [facility] [address] [place], [place] [address] Rolanda Stefanie BAND % 7 % Critically high 0-5 [facility] Comment on above: Performed By: #### C PARISH #### [facility] [address] [place], [place] [address] Rolanda Stefanie BASOM # 0.00 103/ul Normal 0.00-0.10 [facility] Comment on above: Performed By: #### C PARISH #### [facility] [address] [place] [address] Rolanda Stefanie BASOM % 0.0 % Critically low 0.2-2.0 [facility] Comment on above: Performed By: #### C PARISH #### [facility] [address] [place], [place] [address] Rolanda Stefanie BLAST # Normal [facility] Comment on above: Performed By: #### C PARISH #### [facility] [address] [place], [place] [address] Rolanda Stefanie BLAST % Normal [facility] Comment on above: Performed By: #### C PARISH #### [facility] [address] [place], [place] [address] Rolanda Stefanie CORRECTED WBC Normal 4.0-11.0 [facility] Comment on above: Performed By: #### C PARISH #### [facility] [address] [place] [address] Rolanda Stefanie Eosinophils (Bld) [#/Vol] 0.05 103/ul Normal 0.00-0.70 [facility] Comment on above: Performed By: #### C PARISH #### [facility] [address] [place], [place] [address] Rolanda Stefanie Eosinophils/100 WBC (Bld) 1.0 % Normal 0.9-7.0 [facility] Comment on above: Performed By: #### C PARISH #### [facility] [address] [place], [place] [address] Rolanda Stefanie Erythrocyte distribution width (RBC) [Ratio] 13.7 % Normal 11.0-15.0 [facility] Comment on above: Performed By: #### Jaron LUGO #### [facility] [address] [place] [address] Rolanda Stefanie Hematocrit (Bld) [Volume fraction] 57.7 % Critically high 42.0-54.0 [facility] Comment on above: Performed By: #### C PARISH #### [facility] [address] [place], [place] [address] Rolanda Stefanie Hemoglobin (Bld) [Mass/Vol] 19.9 g/dl Critically high 14.0-18.0 [facility] Comment on above: Performed By: #### Jaron LUGO #### [facility] [address] [place] [address] Rolanda Stefanie LYMPHM # 0.54 103/ul Critically low 1.20-3.80 [facility] Comment on above: Performed By: #### C PARISH #### [facility] [address] [place] [id number] Rolanda Stefanie LYMPHM% 11.0 % Critically low 20.5-60.0 [facility] Comment on above: Performed By: #### C PARISH #### [facility] [address] [place], [place] [address] Rolandageoffrey Watts MCH (RBC) [Entitic mass] 34.6 pg Critically high 25.9-34.0 [facility] Comment on above: Performed By: #### Jaron LUGO #### [facility] [address] [place] [address] Rolandageoffrey Watts MCHC (RBC) [Mass/Vol] 34.5 g/dl Normal 29.9-35.2 [facility] Comment on above: Performed By: #### Jaron LUGO #### [facility] [address] [place], [place] [address] Rolanda Watts MCV (RBC) [Entitic vol] 100.3 fL Critically high 80.0-94.0 [facility] Comment on above: Performed By: #### Jaron LUGO #### [facility] [address] [place] [address] Rolanda Stefanie METAMYELOCYTE # Normal [facility] Comment on above: Performed By: #### Jaron LUGO #### [facility] [address] [place], [place] [address] Rolanda Stefanie METAMYELOCYTE % Normal [facility] Comment on above: Performed By: #### Jaron LUGO #### [facility] [address] [place] [address] Rolanda Stefanie MONOM# 0.49 103/ul Normal 0.30-0.80 [facility] Comment on above: Performed By: #### Jaron LUGO #### [facility] [address] [place] [id number] Rolanda Stefanie MONOM% 10.0 % Normal 1.7-12.0 [facility] Comment on above: Performed By: #### Jaron LUGO #### [facility] [address] [place], [place] [address] Rolanda Stefanie MYELOCYTE # Normal [facility] Comment on above: Performed By: #### Jaron LUGO #### [facility] [address] [place], [place] [address] Rolanda Stefanie MYELOCYTE % Normal [facility] Comment on above: Performed By: #### Jaron LUGO #### [facility] [address] [place], [place] [address] Rolanda Stefanie NRBC Normal [facility] Comment on above: Performed By: #### Jaron LUGO #### [facility] [address] [place], [place] [address] Rolanda Stefanie Platelet mean volume (Bld) [Entitic vol] 9.9 fL Normal 9.5-13.5 [facility] Comment on above: Performed By: #### Jaron LUGO #### [facility] [address] [place], [place] [address] Rolanda Stefanie Platelets (Bld) [#/Vol] 168 103/ul Normal 150-450 [facility] Comment on above: Performed By: #### Jaron LUGO #### [facility] [address] [place], [place] [address] Rolanda Stefanie RBC (Bld) [#/Vol] 5.75 106/ul Normal 4.70-6.10 [facility] Comment on above: Performed By: #### Jaron LUGO #### [facility] [address] [place], [place] [address] Rolanda Stefanie SEG # 3.43 103/ul Normal 1.40-6.50 [facility] Comment on above: Performed By: #### Jaron LUGO #### [facility] [address] [place], [place] [address] Rolanda Stefanie Segmented neutrophils/100 WBC (Bld) 70.0 % Normal 43.0-75.0 [facility] Comment on above: Performed By: #### C LESVIAMAN #### [facility] [address] [place] [address] Rolandageoffrey Watts WBC (Bld) [#/Vol] 4.9 103/ul Normal 4.0-11.0 [facility] Comment on above: Performed By: #### C LESVIAMAN #### [facility] [address] [place] [address] Rolanda Stefanie LACTATE/LACTIC ACIDon 2020 Lactate [Moles/Vol] 2.0 mmol/L Normal 0.7-2.0 [facility] Comment on above: Performed By: #### A CETON #### [facility] [address] [place] [address] Rolanda Stefanie PH VENOUS BLOODon 04-28-2020 PCO2 VENOUS 50.6 mmHg Normal 40.0-52.0 [facility] Comment on above: Performed By: #### A CETON #### [facility] [address] [place] [address] Rolanda Stefanie pH VENOUS 7.36 Normal 7.33-7.43 [facility] Comment on above: Performed By: #### A CETON #### [facility] [address] [place] [address] Rolandageoffrey Watts PROCALCITONINon 04-28-2020 PCT header 1 SEE BELOW Normal [facility] Comment on above: Result Comment: PCT <0.5ng/mL: Systemic infection (sepsis) is not likely, local bacterial infection possible, low risk for progression to severe systemic infection (severe sepsis) Performed By: #### P RL #### [facility] [address] [place] [address] Rolanda Stefanie PCT header 2 SEE BELOW Normal [facility] Comment on above: Result Comment: PCT >/=0.5 and <2 ng/mL: Systemic infection (sepsis) is possible, moderate risk for progression to severe systemic infection (severe sepsis) Performed By: #### P RL #### [facility] [address] [place] [address] Rolanda Stefanie PCT header 3 SEE BELOW Normal [facility] Comment on above: Result Comment: PCT >/=2.0 and <10 ng/mL: Systemic infection (sepsis) is likely, unless other causes are known, high risk for progession to severe systemic infection(severe sepsis) Performed By: #### P RL #### [facility] [address] [place] [address] Rolanda Watts PCT header 4 SEE BELOW Normal [facility] Comment on above: Result Comment: PCT >/= 10 ng/mL: Important systemic inflammatory response almost exclusively due to severe bacterial sepsis or septic shock, high likelihood of severe sepsis or septic shock Performed By: #### P RL #### [facility] [address] [place] [address] Rolanda Watts PROCALCITONIN 0.07 ng/mL Normal 0.00-0.50 [facility] Comment on above: Performed By: #### P RL #### [facility] [address] [place] [address] Rolanda Watts PROF 14(COMP METB)on 021 Albumin [Mass/Vol] 3.5 g/dL Normal 3.5-5.0 [facility] Comment on above: Performed By: #### H KAYY, CMP #### [facility] [address] [place], [place] [address] Rolanda Watts Albumin/Globulin [Mass ratio] 1.0 {ratio} Normal [facility] Comment on above: Performed By: #### H KAYY, CMP #### [facility] [address] [place] [address] Rolanda Stefanie ALP [Catalytic activity/Vol] 96 U/L Normal 38-126 [facility] Comment on above: Performed By: #### H KAYY, CMP #### [facility] [address] [place], [place] [address] Rolanda Stefanie ALT [Catalytic activity/Vol] 33 U/L Normal 21-72 [facility] Comment on above: Performed By: #### H KAYY, CMP #### [facility] [address] [place], [place] [address] Rolandageoffrey Watts Anion gap [Moles/Vol] 12.8 mmol/L Normal [facility] Comment on above: Performed By: #### H STROPN, CMP #### [facility] [address] [place] [address] Rolanda Stefanie AST [Catalytic activity/Vol] 26 U/L Normal 17-59 [facility] Comment on above: Performed By: #### H STROPN, CMP #### [facility] [address] [place] [address] Rolanda Stefanie Bilirubin Ql (U) 0.6 mg/dL Normal 0.2-1.3 [facility] Comment on above: Performed By: #### H STROPN, CMP #### [facility] [address] [place] [address] Rolanda Stefanie Calcium [Mass/Vol] 8.7 mg/dL Normal 8.4-10.2 [facility] Comment on above: Performed By: #### H STROPN, CMP #### [facility] [address] [place] [address] Rolanda Stefanie Chloride [Moles/Vol] 104 mmol/L Normal 98-107 [facility] Comment on above: Performed By: #### H STROPN, CMP #### [facility] [address] [place] [address] Rolanda Stefanie CO2 [Moles/Vol] 25.0 mmol/L Normal 22.0-30.0 [facility] Comment on above: Performed By: #### H STROPN, CMP #### [facility] [address] [place] [address] Rolanda Stefanie Creatinine [Mass/Vol] 0.98 mg/dL Normal 0.66-1.25 [facility] Comment on above: Performed By: #### H STROPN, CMP #### [facility] [address] [place] [address] Rolanda Stefanie EGFR-AF CAMBODIAN >60 Normal >=60 [facility] Comment on above: Performed By: #### H STROPN, CMP #### [facility] [address] [place] [address] Rolanda Stefanie EGFR-NON AF CAMBODIAN >60 Normal >=60 [facility] Comment on above: Performed By: #### H STROEDDY, CMP #### [facility] [address] [place], [place] [address] Rolanda Stefanie Globulin (S) [Mass/Vol] 3.6 g/dL Normal [facility] Comment on above: Performed By: #### H STROEDDY, CMP #### [facility] [address] [place], [place] [address] Rolanda Stefanie Glucose [Mass/Vol] 105 mg/dL Normal 74-106 [facility] Comment on above: Performed By: #### H STROEDDY, CMP #### [facility] [address] [place] [phone] Rolanda Stefanie Potassium [Moles/Vol] 3.8 mmol/L Normal 3.4-5.0 [facility] Comment on above: Performed By: #### H KAYY, CMP #### [facility] [address] [place] [id number] Rolanda Stefanie Protein [Mass/Vol] 7.1 g/dL Normal 6.1-8.2 [facility] Comment on above: Performed By: #### H KAYY, CMP #### [facility] [address] [place] [id number] Rolanda Stefanie Sodium [Moles/Vol] 138 mmol/L Normal 137-145 [facility] Comment on above: Performed By: #### H KAYY, CMP #### [facility] [address] [place] [id number] Rolanda Stefanie Urea nitrogen [Mass/Vol] 13.0 mg/dL Normal 9.0-20.0 [facility] Comment on above: Performed By: #### H KAYY, CMP #### [facility] [address] [place] [id number] Rolanda Stefanie Urea nitrogen/Creatinine [Mass ratio] 13.3 mg/mg Normal [facility] Comment on above: Performed By: #### H STROEDDY, CMP #### [facility] [address] [place] [id number] Rolanda Stefanie PROTIMEon 04-28-2020 INR Coag (PPP) [Relative time] 1.05 {INR} Normal [facility] Comment on above: Performed By: #### P TT, PT #### [facility] [address] [place], [place] [address] Rolanda Watts PT Coag (PPP) [Time] 11.4 s Normal 9.0-11.6 [facility] Comment on above: Performed By: #### P TT, PT #### [facility] [address] [place] [id number] Rolanda Watts PT Coag (PPP) [Time] SEE BELOW Normal [facility] Comment on above: Result Comment: NIMO RED INR: 2.0 - 3.0 CONDITIONS NOT LISTED BELOW 2.5 - 3.5 FOR PROSTHETIC HEART VALVE REPLACEMENT 2.5 - 3.5 RECURRENT THROMBOSIS Performed By: #### P TT, PT #### [facility] [address] [place] [id number] Rolanda Watts PTTon 04-28-2020 aPTT Coag (Bld) [Time] 31.1 s Normal 22.3-36.2 [facility] Comment on above: Performed By: #### P TT, PT #### [facility] [address] [place], [place] [phone] Rolanda Watts TROPONIN, HIGH SENSITIVITYon 04-28-2020 HSTROP 7.0 pg/mL Normal 4.0-42.2 [facility] Comment on above: Result Comment: CUT- OFF POINTS HAVE BEEN ESTABLISHED BASED ON THE FOURTH UNIVERSAL DEFINITIONS OF MYOCARDIAL INFARCTION. THE UPPER REFERENCE LIMIT (URL) OF TROPONIN, DEFINED THE 99TH PERCENTILE OF cTnI DISTRIBUTION IN A REFERENCE POPULATION, HAS BEEN CONFIRMED THE DECISION THRESHOLD FOR IA DIAGNOSIS. Performed By: #### H STROPN, CMP #### [facility] [address] [place] [phone] Rolanda Watts Covid-19 PCR (CVDTBH)on Covid-19 PCR DETECTED Abnormal NOT DETECTED [facility] Comment on above: Result Comment: This test is not yet approved or cleared by the [place] FDA. When there are no FDA-approved or cleared tests available, and other criteria are met, FDA can make tests available under an emergency access mechanism called an Emergency Use Authorization (EUA). The EUA for this test is supported by the Expansion Joint Finisher of Health and Human Service's (HHS's) declaration [...] longer be used). Performed By: #### C VDTB #### [facility] [address] [place], [place] [address] Rolanda Watts EUA Statement SEE BELOW Normal [facility] Comment on above: Result Comment: This test is not yet approved or cleared by the [place] FDA. When there are no FDA-approved or cleared tests available, and other criteria are met, FDA can make tests available under an emergency access mechanism called an Emergency Use Authorization (EUA). The EUA for this test is supported by the Expansion Joint Finisher of Health and Human Service?s (HHS?s) declaration [...] consistent with SARS-CoV-2. Performed By: #### C VDTB #### [facility] [address] [place], [place] [address] Rolanda Watts Vital Signs Date Time Vital Sign Value Performing Clinician Facility 08-23-2024 09:25-0400 Body temperature 97.5 [degF] Ezeradha AbadMarcia DO Work Phone: [facility] 08-23-2024 09:25-0400 Diastolic blood pressure 96 mm[Hg] Eze Marcia DO Work Phone: [facility] 08-23-2024 09:25-0400 Systolic blood pressure 142 mm[Hg] Eze Marcia DO Work Phone: [facility] 08-23-2024 09:140400 Body height 180.34 cm Eze Marcia DO Work Phone: [facility] 08-23-2024 09:140400 Body mass index (BMI) [Ratio] 39.2 kg/m2 Eze Marcia DO Work Phone: [facility] 08-23-2024 09:140400 Body weight 127.45 kg Eze Marcia DO Work Phone: [facility] 08-23-2024 09:140400 Heart rate 72 /min Eze Marcia DO Work Phone: [facility] 08-23-2024 09:140400 Respiratory rate 18 /min Eze Marcia DO Work Phone: [facility] 08-23-2024 09:140400 SaO2% (BldA) [Mass fraction] 96 % Eze Marcia DO Work Phone: [facility] 07-23-2024 10:29-0400 Diastolic blood pressure 100 mm[Hg] Eze Marcia DO Work Phone: [facility] 07-23-2024 10:29-0400 Systolic blood pressure 170 mm[Hg] Eze Marcia DO Work Phone: [facility] 07-23-2024 10:190400 Body height 180.34 cm Eze Marcia DO Work Phone: [facility] 07-23-2024 10:19-0400 Body mass index (BMI) [Ratio] 39.3 kg/m2 Eze Marcia DO Work Phone: [facility] 07-23-2024 10:190400 Body temperature 96 [degF] Eze Marcia DO Work Phone: [facility] 07-23-2024 10:19-0400 Body weight 127.91 kg Eze Marcia DO Work Phone: [facility] 07-23-2024 10:19-0400 Heart rate 71 /min Eze Marcia DO Work Phone: [facility] 07-23-2024 10:19-0400 Respiratory rate 18 /min Eze Marcia DO Work Phone: [facility] 07-23-2024 10:19-0400 SaO2% (BldA) [Mass fraction] 96 % Eze Marcia DO Work Phone: [facility] 05-30-2024 14:34-0500 Body height 180.34 cm Eze Marcia DO Work Phone: [facility] 05-30-2024 14:34-0500 Body mass index (BMI) [Ratio] 41.7 kg/m2 Eze Marcia DO Work Phone: [facility] 05-30-2024 14:34-0500 Body temperature 98.2 [degF] Eze Marcia DO Work Phone: [facility] 05-30-2024 14:34-0500 Body weight 135.73 kg Eze Marcia DO Work Phone: [facility] 05-30-2024 14:34-0500 Diastolic blood pressure 90 mm[Hg] Eze Marcia DO Work Phone: [facility] 05-30-2024 14:34-0500 Heart rate 79 /min Eze Marcia DO Work Phone: [facility] 05-30-2024 14:34-0500 Respiratory rate 19 /min Eze Marcia DO Work Phone: [facility] 05-30-2024 14:34-0500 SaO2% (BldA) [Mass fraction] 93 % Eze Marcia DO Work Phone: [facility] 05-30-2024 14:34-0500 Systolic blood pressure 151 mm[Hg] Eze Marcia DO Work Phone: [facility] 05-15-2024 08:21-0500 Body height 180.34 cm Eze Marcia DO Work Phone: [facility] 05-15-2024 08:21-0500 Body mass index (BMI) [Ratio] 41.5 kg/m2 Eze Marcia DO Work Phone: [facility] 05-15-2024 08:21-0500 Body weight 135.17 kg Eze Marcia DO Work Phone: [facility] 02-23-2024 08:44-0400 Body height 180.34 cm [facility] 02-23-2024 08:44-0400 Body mass index (BMI) [Ratio] 42.1 kg/m2 [facility] 02-23-2024 08:44-0400 Body temperature 97 [degF] [facility] 02-23-2024 08:44-0400 Body weight 136.98 kg [facility] 02-23-2024 08:44-0400 Diastolic blood pressure 88 mm[Hg] [facility] 02-23-2024 08:44-0400 Heart rate 85 /min [facility] 02-23-2024 08:44-0400 SaO2% (BldA) [Mass fraction] 97 % [facility] 02-23-2024 08:44-0400 Systolic blood pressure 142 mm[Hg] [facility] 01-30-2024 11:24-0400 Body height 180.34 cm [facility] 01-30-2024 11:24-0400 Body mass index (BMI) [Ratio] 40.4 kg/m2 [facility] 01-30-2024 11:24-0400 Body weight 131.54 kg [facility] 01-17-2024 09:16-0400 Diastolic blood pressure 98 mm[Hg] [facility] 01-17-2024 09:16-0400 Systolic blood pressure 140 mm[Hg] [facility] 01-15-2024 10:15-0400 Body height 180.34 cm [facility] 01-15-2024 10:15-0400 Body mass index (BMI) [Ratio] 41.5 kg/m2 [facility] 01-15-2024 10:15-0400 Body temperature 97.3 [degF] [facility] 01-15-2024 10:15-0400 Body weight 135.17 kg [facility] 01-15-2024 10:15-0400 Heart rate 75 /min [facility] 01-15-2024 10:15-0400 SaO2% (BldA) [Mass fraction] 98 % [facility] 08-25-2023 09:51-0400 Diastolic blood pressure 98 mm[Hg] [facility] 08-25-2023 09:51-0400 Systolic blood pressure 138 mm[Hg] [facility] 08-25-2023 09:44-0400 Body height 177.8 cm [facility] 08-25-2023 09:44-0400 Body mass index (BMI) [Ratio] 43 kg/m2 [facility] 08-25-2023 09:44-0400 Body temperature 97.1 [degF] [facility] 08-25-2023 09:44-0400 Body weight 136.07 kg [facility] 08-25-2023 09:44-0400 Heart rate 78 /min [facility] 08-25-2023 09:44-0400 SaO2% (BldA) [Mass fraction] 96 % [facility] 04-28-2023 09:55-0500 Body height 177.8 cm Savanah Cuello Other [facility] Other 04-28-2023 09:55-0500 Body mass index (BMI) [Ratio] 42.32 kg/m2 Savanah Cuello Other [facility] Other 04-28-2023 09:55-0500 Body temperature 97.5 [degF] Savanah Cuello Other [facility] Other 04-28-2023 09:55-0500 Body weight 133.81 kg Savanah Cuello Other [facility] Other 04-28-2023 09:55-0500 Diastolic blood pressure 97 mm[Hg] Savanah Cuello Other [facility] Other 04-28-2023 09:55-0500 Respiratory rate 18 /min Savanah Cuello Other [facility] Other 04-28-2023 09:55-0500 SaO2% (BldA) [Mass fraction] 96 % Savanah Cuello Other [facility] Other 04-28-2023 09:55-0500 Systolic blood pressure 150 mm[Hg] Savanah Cuello Other [facility] Other 07-29-2022 10:00-0400 Body height 177.8 cm Eze Marcia Other [facility] Other 07-29-2022 10:00-0400 Body mass index (BMI) [Ratio] 41.75 kg/m2 Eze Marcia Other [facility] Other 07-29-2022 10:00-0400 Body temperature 97 [degF] Eze Marcia Other [facility] Other 07-29-2022 10:00-0400 Body weight 132 kg Eze Marcia Other [facility] Other 07-29-2022 10:00-0400 Diastolic blood pressure 62 mm[Hg] Eze Marcia Other [facility] Other 07-29-2022 10:00-0400 Respiratory rate 18 /min Eze Marcia Other [facility] Other 07-29-2022 10:00-0400 SaO2% (BldA) [Mass fraction] 98 % Eze Marcia Other [facility] Other 07-29-2022 10:00-0400 Systolic blood pressure 122 mm[Hg] Eze Marcia Other [facility] Other 03-31-2022 18:15-0500 Body height 177.8 cm Stormy White Other [facility] Other 03-31-2022 18:15-0500 Body mass index (BMI) [Ratio] 38.74 kg/m2 Stormy Garcíaault Other [facility] Other 03-31-2022 18:15-0500 Body temperature 97.9 [degF] Stormy Garcíaault Other [facility] Other 03-31-2022 18:15-0500 Body weight 122.47 kg Stormy Garcíaault Other [facility] Other 03-31-2022 18:15-0500 Respiratory rate 18 /min Stormy Garcíaault Other [facility] Other 03-31-2022 18:15-0500 SaO2% (BldA) [Mass fraction] 95 % Stormy White Other [facility] Other 01-28-2022 10:00-0400 Body height 177.8 cm Eze Marcia Other [facility] Other 01-28-2022 10:00-0400 Body mass index (BMI) [Ratio] 38.88 kg/m2 Eze Marcia Other [facility] Other 01-28-2022 10:00-0400 Body temperature 97.1 [degF] Eze Marcia Other [facility] Other 01-28-2022 10:00-0400 Body weight 122.93 kg Eze Marcia Other [facility] Other 01-28-2022 10:00-0400 Diastolic blood pressure 78 mm[Hg] Eze Marcia Other [facility] Other 01-28-2022 10:00-0400 Respiratory rate 20 /min Eze Marcia Other [facility] Other 01-28-2022 10:00-0400 SaO2% (BldA) [Mass fraction] 98 % Eze Marcia Other [facility] Other 01-28-2022 10:00-0400 Systolic blood pressure 124 mm[Hg] Eze Marcia Other [facility] Other 09-24-2021 11:00-0400 Body height 177.8 cm Eze Marcia Other [facility] Other 09-24-2021 11:00-0400 Body mass index (BMI) [Ratio] 37.16 kg/m2 Eze Marcia Other [facility] Other 09-24-2021 11:00-0400 Body temperature 98.4 [degF] Eze Marcia Other [facility] Other 09-24-2021 11:00-0400 Body weight 117.48 kg Eze Marcia Other [facility] Other 09-24-2021 11:00-0400 Diastolic blood pressure 82 mm[Hg] Eze Marcia Other [facility] Other 09-24-2021 11:00-0400 Respiratory rate 20 /min Eze Marcia Other [facility] Other 09-24-2021 11:00-0400 SaO2% (BldA) [Mass fraction] 96 % Eze Marcia Other [facility] Other 09-24-2021 11:00-0400 Systolic blood pressure 128 mm[Hg] Eze Marcia Other [facility] Other 07-23-2021 09:15-0400 Body height 177.8 cm Eze Marcia Other [facility] Other 07-23-2021 09:15-0400 Body mass index (BMI) [Ratio] 40.75 kg/m2 Eze Marcia Other [facility] Other 07-23-2021 09:15-0400 Body temperature 97.6 [degF] Eze Marcia Other [facility] Other 07-23-2021 09:15-0400 Body weight 128.82 kg Eze Marcia Other [facility] Other 07-23-2021 09:15-0400 Diastolic blood pressure 82 mm[Hg] Eze Marcia Other [facility] Other 07-23-2021 09:15-0400 Respiratory rate 20 /min Eze Marcia Other [facility] Other 07-23-2021 09:15-0400 SaO2% (BldA) [Mass fraction] 97 % Eze Marcia Other [facility] Other 07-23-2021 09:15-0400 Systolic blood pressure 124 mm[Hg] Eze Marcia Other [facility] Other 05-14-2021 12:15-0500 Body height 177.8 cm Eze Marcia Other [facility] Other 05-14-2021 12:15-0500 Body mass index (BMI) [Ratio] 40.89 kg/m2 Eze Marcia Other [facility] Other 05-14-2021 12:15-0500 Body temperature 97.8 [degF] Eze Marcia Other [facility] Other 05-14-2021 12:15-0500 Body weight 129.28 kg Eze Marcia Other [facility] Other 05-14-2021 12:15-0500 Diastolic blood pressure 88 mm[Hg] Eze Marcia Other [facility] Other 05-14-2021 12:15-0500 Respiratory rate 20 /min Eze Marcia Other [facility] Other 05-14-2021 12:15-0500 SaO2% (BldA) [Mass fraction] 97 % Eze Marcia Other [facility] Other 05-14-2021 12:15-0500 Systolic blood pressure 132 mm[Hg] Eze Marcia Other [facility] Other Encounters Encounter Date Encounter Type Care Provider Facility Start: 09-04-2024 End: 09-04-2024 ambulatory Eze M. Marcia DO Work Phone: [facility] Work Phone: Start: 09-04-2024 End: 09-04-2024 Patient encounter procedure Eze Marcia DO Work Phone: [facility] Work Phone: Start: 08-23-2024 End: 08-23-2024 ambulatory Eze M. Marcia DO Work Phone: [facility] Work Phone: Start: 08-23-2024 End: 08-23-2024 Patient encounter procedure Eze Marcia DO Work Phone: [facility] Work Phone: Start: 08-09-2024 End: 08-09-2024 ambulatory Eze M. Marcia Facility:[facility] Start: 08-09-2024 End: 08-09-2024 Patient encounter procedure Eze Marcia DO Work Phone: [facility] Work Phone: Start: 07-31-2024 Non-patient / Non-visit Eze R uggles DO Work Phone: [facility] Work Phone: Start: 07-23-2024 End: 07-23-2024 ambulatory Eze M. Marcia DO Work Phone: [facility] Work Phone: Start: 07-23-2024 End: 07-23-2024 Patient encounter procedure Eze Marcia DO Work Phone: [facility] Work Phone: Start: 05-30-2024 End: 05-30-2024 ambulatory Eze M. Marcia DO Work Phone: [facility] Work Phone: Start: 05-30-2024 End: 05-30-2024 Patient encounter procedure Eze Marcia DO Work Phone: [facility] Work Phone: Start: 05-15-2024 End: 05-15-2024 ambulatory Eze M. Marcia DO Work Phone: [facility] Work Phone: Start: 05-15-2024 End: 05-15-2024 Patient encounter procedure Eze Marcia DO Work Phone: [facility] Work Phone: Start: 05-03-2024 End: 05-03-2024 ambulatory Eze M. Marcia DO Work Phone: [facility] Work Phone: Start: 05-03-2024 End: 05-03-2024 Patient encounter procedure Eze Marcia DO Work Phone: [facility] Work Phone: Start: 04-18-2024 End: 04-18-2024 Patient encounter procedure Eze Marcia DO Work Phone: [facility] [address] [facility] Work Phone: Start: 04-18-2024 End: 04-18-2024 ambulatory Edward Barnard Facility:[facility] Start: 02-23-2024 End: 02-23-2024 ambulatory [facility] Work Phone: Start: 02-23-2024 End: 02-23-2024 [facility] [place] Work Phone: Start: 02-05-2024 End: 02-05-2024 ambulatory [facility] Work Phone: Start: 02-05-2024 End: 02-05-2024 Patient encounter procedure [facility] Work Phone: Start: 01-15-2024 End: 01-15-2024 ambulatory EZE M MARCIA [facility] Work Phone: Start: 01-15-2024 End: 01-15-2024 Patient encounter procedure [facility] [place] Work Phone: Start: 08-25-2023 End: 08-25-2023 ambulatory [facility] Work Phone: Start: 08-25-2023 End: 08-25-2023 Encounter for general adult medical examination without abnormal findings [facility] Start: 08-25-2023 End: 08-25-2023 Patient encounter procedure [facility] [place] Work Phone: Start: 05-26-2023 End: 05-26-2023 ambulatory Eze Marcia Other [facility] Other Start: 05-26-2023 Telephone encounter Eze Marcia [facility] Start: 04-28-2023 End: 04-28-2023 ambulatory Savanah Weissmond Other [facility] Other Start: 04-28-2023 Office outpatient vi sit 15 minutes Savanahdamien Cuello [facility] Start: 04-28-2023 Telephone encounter Eze Marcia [facility] Start: 07-29-2022 End: 07-29-2022 ambulatory Eze Marcia Other [facility] Other Start: 07-29-2022 Office outpatient vi sit 15 minutes Eze Marcia [facility] Start: 04-05-2022 End: 04-05-2022 ambulatory Eze Marcia Other [facility] Other Start: 04-05-2022 Telephone encounter Eze Marcia [facility] Start: 03-31-2022 End: 03-31-2022 ambulatory Stormy Christopher Other [facility] Other Start: 03-31-2022 Office outpatient vi sit 25 minutes Stormyaung White [facility] Start: 03-24-2022 End: 03-24-2022 ambulatory Eze Marcia Other [facility] Other Start: 03-24-2022 Telephone encounter Eze Marcia [facility] Start: 01-28-2022 End: 01-28-2022 ambulatory Eze Marcia Other [facility] Other Start: 01-28-2022 Office outpatient vi sit 15 minutes Eze Marcia [facility] Start: 12-31-2021 End: 12-31-2021 ambulatory Eze Marcia Other [facility] Other Start: 12-31-2021 Telephone encounter Eze Marcia [facility] Start: 11-08-2021 End: 11-08-2021 ambulatory Eze Marcia Other [facility] Other Start: 11-08-2021 Telephone encounter Eze Marcia [facility] Start: 09-24-2021 End: 09-24-2021 ambulatory Eze Marcia Other [facility] Other Start: 09-24-2021 Office outpatient vi sit 15 minutes Eze Marcia [facility] Start: 08-06-2021 End: 08-06-2021 ambulatory Eze Marcia Other [facility] Other Start: 08-06-2021 Telephone encounter Eze Marcia [facility] Start: 07-23-2021 End: 07-23-2021 ambulatory Eze Marcia Other [facility] Other Start: 07-23-2021 Office outpatient vi sit 15 minutes Eze Marcia [facility] Start: 07-23-2021 Telephone encounter Eze Marcia [facility] Start: 05-14-2021 End: 05-14-2021 ambulatory Eze Marcia Other [facility] Other Start: 05-14-2021 Office outpatient vi sit 25 minutes Eze Marcia [facility] Start: 04-28-2020 End: 04-29-2020 Patient encounter procedure EZE M MARCIA Facility:[facility] Start: 04-27-2020 End: 04-27-2020 Patient encounter procedure EZE M MARCIA Facility:[facility] Procedures Date Procedure Procedure Detail Performing Clinician Start: 08-09-2024 X-ray of both knees, four views Eze Marcia DO Work Phone: Start: 05-30-2024 Plain chest X-ray Eze Marcia DO Work Phone: Start: 04-18-2024 MRI of right knee Eze Marcia DO Work Phone: Start: 04-28-2020 End: 04-28-2020 Microscopic examination of blood, culture EZE MARCIA Comment on above: Performed By: #### A CETON #### [facility] [address] [place], [place] [address] Rolanda Watts Performed By: #### B [id number] #### [facility] [address] [place], [place] [address] Rolanda Watts Plan of Treatment Date Care Activity Detail Author Start: 08-09-2024 X-ray of both knees, four views XR knee BI 4V [facility] Start: 08-09-2024 XR Knee - bilateral 4 Views [facility] Comprehensive metabo lic 2000 panel - Serum or Plasma [facility] Immunizations Immunization Date Immunization Notes Care Provider Arnav apple NEGATED: Highlighted row has not occurred!10-07-2019 influenza, injectable, quadrivalent, contains preservative Patient Objection Eze Marcia Other [facility] Other NEGATED: Highlighted row has not occurred!04-11-2018 influenza, injectable, quadrivalent, contains preservative Patient Objection Eze Marcia Other [facility] Other Payers Date Payer Category Payer [employer] ( [employer] others) [id number] 2024 Self-pay [id number] 2024 [employer] ( and others) 2024 [employer] ( [employer] others) [id number] 3.19 1973 Unknown [id number] 1973 Unknown [id number] 1973 Unknown [id number] 1959 [employer] ( and others) [id number] Unknown [id number] Unknown [id number] Unknown [id number] Social History Date Type Detail Facility Unknown if ever smoked [facility] Other Sex Assigned At [facility] Start: 09-30-2021 End: 08-23-2024 Tobacco smoking status NHIS Ex-smoker (finding) [facility] Start: 1975 Sex Assigned At Male F [facility] Tobacco smoking status No Smokin g Status Entered [facility] Start: 05-03-2024 End: 09-04-2024 Sex Male (finding) [facility] Procedure Code Equipment Code Equipment Origin al Text Equipment Identifier Dates Repair, hernia, umbilical Abdominal hernia surgical mesh, composite-polymer [id number] [facility] Start: 09-30-2021 Clinical Notes 12-23-2017 to 07-23-2024 Note Date & Type Note Facility 07-23-2024 Evaluation note Diagnosis Onset Date Resolution Hypertension acute July 23 10:15am Primary osteoarthritis of left knee acute August 09, 2024 9:19am Primary osteoarthritis of right knee acute August 09, 2024 9:19am Anxiety acute August 23, 2024 8:48am Hypertension acute August 23 8:48am Primary osteoarthritis of left knee acute September 04, 2024 8:24am Primary osteoarthritis of right knee acute September 04, 2024 8:24am [facility] Work Phone: 1(656) 289-355702-06-2025 Evaluation note* Diagnosis Onset Date Resolution Status Admit Date Pneumonitis acute May 30, 2024 2:26pm Hypertension acute July 23, 2 025 10:15am Primary osteoarthritis of le ft knee acute August 09, 2024 9:19am Primary osteoarthritis of ri ght knee acute August 09, 2024 9:19am [facility] Work Phone: 1(223) 918-960602-06-2025 Evaluation note* Diagnosis Onset Date Resolution Status Admit Date Pneumonitis acute May 30, 2024 2:26pm Hypertension acute July 23, 025 10:15am Primary osteoarthritis of le ft knee acute August 09, 2024 9:19am Primary osteoarthritis of ri ght knee acute August 09, 2024 9:19am Anxiety acute August 23, 2024 8:48am Hypertension acute August 23 8:48am [facility] Work Phone: 1(374) 775-559601-10-2025 Evaluation note* Diagnosis Onset Date Resolution Status Admit Date Primary osteoarthritis of le ft knee acute May 03 8:58am Primary osteoarthritis of ri ght knee acute May 03 8:58am Primary osteoarthritis of le ft knee acute May 15 8:08am Primary osteoarthritis of ri ght knee acute May 15 8:08am Pneumonitis acute May 30, 2024 2:26pm [facility] Work Phone: 1(896) 296-875101-10-2025 Evaluation note* Diagnosis Onset Date Resolution Status Admit Date Primary osteoarthritis of le ft knee acute May 03 8:58am Primary osteoarthritis of ri ght knee acute May 03 8:58am Primary osteoarthritis of le ft knee acute May 15 8:08am Primary osteoarthritis of ri ght knee acute May 15 8:08am Pneumonitis acute May 30, 2024 2:26pm Hypertension acute July 23, 025 10:15am [facility] Work Phone: 1(867) 357-664111-01-2024 Evaluation note* Diagnosis Onset Date Resolution Status [...] of right knee acute May 15 8:08am [facility] Work Phone: 1(626) 868-652910-14-2024 Evaluation note* Diagnosis Onset Date Resolution Status [...] of right knee acute May 03 8:58am [facility] Work Phone: 1(648) 193-668002-02-2024 Evaluation note* Encounter Date Diagnosis Assessment Notes Treatment Notes Treatment Clinical Notes May, Erectile dysfunction, unspecified erectile dysfunction type (ICD-10 - N52.9) [place] Other 01-05-2024 Evaluation note* Encounter Date Diagnosis [...] not specified, unspecified location (ICD-10 - J01.90) [facility] Other 04-07-2023 Evaluation note* Encounter Date Diagnosis Assessment Notes Treatment Notes Treatment Clinical Notes Jul, LPRD (laryngopharyngeal reflux disease) (ICD-10 - K21.9) Certainly no change today. Patient states he is doing much better. He is going to continue to follow with ENT. Call with any concerns. [facility] Other 12-08-2022 Evaluation note* Encounter Date Diagnosis [...] care provider if no improvement of symptoms [facility] Other 12-01-2022 Evaluation note* Encounter Date Diagnosis Assessment Notes Treatment Notes Treatment Clinical Notes Mar, Difficulty sleeping (ICD-10 - G47.9) [facility] Other 10-07-2022 Evaluation note* Encounter Date Diagnosis Assessment Notes Treatment Notes Treatment Clinical Notes Jan, Difficulty sleeping (ICD-10 - G47.9) We will simply continue to monitor at this time. No other change today. Call with any concerns. Recheck in 6 months. [facility] Other 09-09-2022 Evaluation note* Encounter Date Diagnosis Assessment Notes Treatment Notes Treatment Clinical Notes Dec, Erectile dysfunction, unspecified erectile dysfunction type (ICD-10 - N52.9) [facility] Other 07-18-2022 Evaluation note* Encounter Date Diagnosis Assessment Notes Treatment Notes Treatment Clinical Notes Oct, Difficulty sleeping (ICD-10 - G47.9) [facility] Other 06-03-2022 Evaluation note* Encounter Date Diagnosis Assessment Notes Treatment Notes Treatment Clinical Notes Sep, Umbilical hernia without obstruction and without gangrene (ICD-10 - K42.9) Pt ok to proceed with surgery - no evidence of any HTN here today, or in the past. I will not pursue any imaging or blood work, as this does not appear to be required by surgery. 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 He voices agreement and understanding. [facility] Other 01-21-2022 Evaluation note* Encounter Date Diagnosis [...] could always get him to see ophthalmology. [facility] Other 09-01-2018 History general Narrative - Reported* Type Description Date Medical History Seizures - partial frontal Surgical History Hernia - Navel and Groin 2000,1 993 Surgical History vasectomy 2009 Surgical History lt vocal cord nodule 12/2017 [facility] Other 09-01-2018 History general Narrative - Reported* Type Description Date Medical History Seizures - partial frontal Surgical History Hernia - Navel and Groin 2000,1 993 Surgical History vasectomy 2009 Surgical History lt vocal cord nodule 12/2017 Surgical History Umbilical Hernia Surgery 2 [facility] Other Evaluation + Plan note No data available for this section [facility] Evaluation noteNo InformationNort [facility] Other Evaluation note* Diagnosis Onset Date Resolution Status Fatigue acute Encounter for wellness examination in adult noneactive [facility] Work Phone: Evaluation noteNo assessment information available [facility] Work Phone: Evrilqpolm note* Diagnosis Onset Date Resolution Status Bilateral knee pain noneacti ve [facility] Work Phone: Evaluation note* Diagnosis Onset Date Resolution Status Bilateral knee pain noneacti ve Primary osteoarthritis of left knee acute Primary osteoarthritis of right knee acute Low testosterone in male acu te Elevated vitamin B12 level n oneactive [facility] Work Phone: Hospital Discharge instructions No data available for this section [facility] Progress note No data available for this section [facility] Reason for visit Calista, would like a referral [facility] Other Summary Purpose Family History Relationship Condition Age at Onset Recorded Date/T son father Hypertension Unknown Not Specified Malignant neoplasm of uterus Unknown father Myocardial infarction Unknown Heart disease Unknown Unknown Relationship Condition Age at Onset Recorded Date/T son father Hypertension Unknown mother Malignant neoplasm of uterus Unknown father Myocardial infarction Unknown Heart disease Unknown Unknown Advance Directives Advance Directive Response Recorded Date/ Time Advance [...] M23.91 April 18, 2024 7:00am MRI RESULTS [facility] May 03, 2024 8 :58am Reason for Visit Admit Date Primary osteoarthritis of left knee Octo 2023 10:13am Primary osteoarthritis of right knee Jan [email or web address] 10:13am Low testosterone in male February 22 8:43am Cough February 23, 2024 8 :43am Elevated vitamin B12 level February 23, 2024 8:43am Primary osteoarthritis of left knee Jah angel2024 8:58am Primary osteoarthritis of right knee Schuyler 2024 8:58am Chief Complaint Admit Date 6 February 23, 2024 8 :43am M23.91 April 18, 2024 7:00am MRI RESULTS [facility] May 03, 2024 8 :58am BILATERAL ZILRETTA INJECTIONS May 152024 8:08am Reason for Visit Admit Date Low testosterone in male February 22 8:43am Cough February 23, 2024 8 :43am Elevated vitamin B12 level February 23, 2024 8:43am Primary osteoarthritis of left knee Jah [email or web address] 8:58am Primary osteoarthritis of right knee Schuyler 2024 8:58am Primary osteoarthritis of left knee Jah angel 2024 8:08am Primary osteoarthritis of right knee Schuyler uary 2024 8:08am Chief Complaint Admit Date M23.91 April 18, 2024 7:00am MRI RESULTS [facility] May 03, 2024 8 :58am BILATERAL ZILRETTA INJECTIONS May 152024 8:08am cough May 30, 2024 2 :26pm R06.2 - Wheezing May 30, 2024 2 :50pm Reason for Visit Admit Date Primary osteoarthritis of left knee Jah ortiz 2024 8:58am Primary osteoarthritis of right knee Schuyler bush 2024 8:58am Primary osteoarthritis of left knee Jah ortiz 2024 8:08am Primary osteoarthritis of right knee Schuyler bsuh 2024 8:08am Pneumonitis May 30, 2024 2 :26pm Chief Complaint Admit Date MRI RESULTS [facility] May 03, 2024 8 :58am BILATERAL ZILRETTA INJECTIONS May 152024 8:08am cough May 30, 2024 2 :26pm R06.2 - Wheezing May 30, 2024 2 :50pm Elevated BP Concerns July 23, 2024 10: 15am Reason for Visit Admit Date Primary osteoarthritis of left knee Jah ortiz 2024 8:58am Primary osteoarthritis of right knee Schuyler bush 2024 8:58am Primary osteoarthritis of left knee Jah ortiz 2024 8:08am Primary osteoarthritis of right knee Schuyler bush 2024 8:08am Pneumonitis May 30, 2024 2 :26pm Hypertension July 23, 2024 10:1 5am Chief Complaint Admit Date cough May 30, 2024 2 :26pm R06.2 - Wheezing May 30, 2024 2 :50pm Elevated BP Concerns July 23, 2024 10: 15am Amb Documentation July 31, 2024 11:1 9am OP SP JAROCHO KNEE PAIN August 09, 2024 9:1 9am M17.12 - Unilateral primary osteoarthrit is, left k August 09, 2024 9:53am Reason for Visit Admit Date Pneumonitis May 30, 2024 2 :26pm Hypertension July 23, 2024 10:1 5am Primary osteoarthritis of left knee Apri l 2024 9:19am Primary osteoarthritis of right knee Apr il 2024 9:19am Chief Complaint Admit Date cough May 30, 2024 2 :26pm R06.2 - Wheezing May 30, 2024 2 :50pm Elevated BP Concerns July 23, 2024 10: 15am Amb Documentation July 31, 2024 11:1 9am OP SP JAROCHO KNEE PAIN August 09, 2024 9:1 9am M17.12 - Unilateral primary osteoarthrit is, left k August 09, 2024 9:53am 6 MONTH August 23, 2024 8:48am Reason for Visit Admit Date Pneumonitis May 30, 2024 2 :26pm Hypertension July 23, 2024 10:1 5am Primary osteoarthritis of left knee Apri l 2024 9:19am Primary osteoarthritis of right knee Apr il 2024 9:19am Anxiety August 23, 2024 8:48am Hypertension August 23, 2024 8:48am Chief Complaint Admit Date Elevated BP Concerns July 23, 2024 10: 15am Amb Documentation July 31, 2024 11:1 9am OP SP JAROCHO KNEE PAIN August 09, 2024 9:1 9am M17.12 - Unilateral primary osteoarthrit is, left k August 09, 2024 9:53am 6 MONTH August 23, 2024 8:48am DUROLANE JAROCHO KNEES BUY AND BILL August 8:24am Reason for Visit Admit Date Hypertension July 23, 2024 10:1 5am Primary osteoarthritis of left knee Apri l 2024 9:19am Primary osteoarthritis of right knee Apr il 2024 9:19am Anxiety August 23, 2024 8:48am Hypertension August 23, 2024 8:48am Primary osteoarthritis of left knee September 04, 2024 8:24am Primary osteoarthritis of right knee September 04, 2024 8:24am Additional Source Comments (unrecognized sect ion and content) No Status Records FoundNo Status Records FoundNo Status Records Found INFORMATION SOURCE (unrecogn ized section and content) DATE CREATED AUTHOR 05/07/2020 [facility] DATE CREATED AUTHOR AUTHOR'S ORGANIZ ATION 02/01/2024 [facility] DATE CREATED AUTHOR AUTHOR'S ORGANIZ ATION 08/14/2024 [facility] REASON FOR VISIT (unrecogniz ed section and content) loss of voice- denies any ot her symptoms, patient says he missed last 2 days of work d/t losing his voice does burn/ hurt minimally-started last week- had that surgery on vocal cords 2018 [place] but doesn't follow with him anymore, he [...] referral6 month Follow up, has been seeing [facility] for this intermittent/ ongoing issue with [...] 2024 End: February 05, 2024 Edward Barnard DO Attending Provider Active S tart: February 05, 2024 End: February 05, 2024 Team Status: Inactive Member Role Status Dates Eze Kennedy DO Primary Care Provid er, Attending Provider Active Start: February 23, 2024 End: February 23, 2024 Team Status: Inactive Member Role Status Dates Eze Kennedy DO Primary Care Provider Active Start: April 18, 2024 End: April 18, 2024 Edward Barnard DO Attending Provider Active S tart: April [...] July 23, 2024 End: July 23, 2024 Team Status: Active Member Role Status Dates Eze Kennedy DO Primary Care Provider Active Start: July 31, 2024 Elsy Peter LPN Attending Provider Active S tart: July 31, 2024 Team Status: Inactive Member Role Status Dates Eze Kennedy DO Primary Care Provider Active Start: August 09, 2024 End: August 09, 2024 Edward Barnard , DO Attending Provider Active S tart: August 09, 2024 End: August 09, 2024 Team Status: Active Member Role Status Dates Eze Kennedy DO Primary Care Provider Active Start: August 09, 2024 Edward Barnard , DO Attending Provider Active S tart: August 09, 2024 Team Status: Inactive Member Role Status Dates Eze Kennedy DO Primary Care Provid er, Attending Provider Active Start: August 23, 2024 End: August 23, 2024 Team Status: Inactive Member Role Status Dates Eze Kennedy DO Primary Care Provider Active Start: September 04, 2024 End: September 04, 2024 Edward Barnard , DO Attending Provider Active S tart: September 04, 2024 End: September 04, 2024 Goals (unrecognized section and content) Goals [...] BE BASED ON THE PRIMARY CLINICAL RECORDS. [facility] [employer] [facility]. provides no warranty or guarantee of the accuracy or completeness of information in this document.
--- NOTE | 2024-11-01 08:48 | XR_ITS ---
[facility] [place] [address] Patient Name: MANJU CASTRO MRN: [id number] date: 1975 Sex: M Assigned Patient Location: ER Current Patient Location: ER Accession/Order Number: [id number] Exam Date: 11/01/2024 09:27 Report Date: 11/01/2024 09:29 At the request of: BRENDAN SANTIAGO MD Procedure: XR knee RT 3V RIGHT KNEE - 3 views COMPARISON: None CLINICAL DATA: Right knee pain below the patella patella following fall AP, lateral and internal oblique views were obtained. No acute fracture or dislocation is noted. There is mild narrowing at the medial tibiofemoral compartment. There is minor tricompartment marginal spurring. There is no knee effusion or significant soft tissue swelling. XR/XR knee RT 3V IMPRESSION: MILD DEGENERATIVE CHANGES. NO ACUTE BONY INJURY. Impression dictated by: Stefanie Guzman M.D. 11/01/2024 9:29 AM Dictation Location: [place] [address] Electronically authenticated by: [id number] Y Date: 11/01/2024 09:29
--- NOTE | 2024-11-01 10:44 | ED_ITS ---
HPI HPI - General Adult General Chief complaint: GI Bleed Stated complaint: HEMORRHOID, LOWER EXTREMITY INJURY - FALL Time Seen by Provider: 11/01/24 08:48 Source: patient Mode of arrival: walk-in History of Present Illness HPI narrative: The patient is coming to the ER for evaluation for the fact that he had slipped on oil spot in the work and in his right knee, he will have a history of arthritis in his knees supposed to have surgery, patient also mentioned that he feels like a bulge in his rectum when this fall happened and he has some bleeding that she think it is from hemorrhoid The patient did not know that he had hemorrhoid these days although he had a history of that before. The bleeding was controlled before arrival No head trauma or loss of consciousness Related Data Home Medications ?Medication ?Instructions ?Recorded ?Confirmed celecoxib 200 mg capsule mg 11/01/24 hydrochlorothiazide 25 mg tablet mg 11/01/24 losartan 25 mg tablet mg 11/01/24 Previous Rx's ?Medication ?Instructions ?Recorded hydrocortisone acetate 25 mg 25 mg LA DAILY PRN hemorr hoids #12 11/01/24 rectal suppository (Anucort-HC) ea lidocaine 5 % topical cream 1 applic topical TID PRN p ain #15 11/01/24 (RectiCare) grams Allergies Allergy/AdvReac Type Severity Reaction Status Date / Time No Known Drug Allergies Allergy Verified 11/01/24 08:17 Review of Systems ROS Status of ROS 10 or more systems reviewed and unremark able except as noted in history and below PFSH PFSH Social History Little interest or pleasure in doing things: not at all Feeling down, depressed, or hopeless: not at all Exam Narrative Exam Narrative: Nurses notes and vital signs reviewed and patient is not hypoxic. General: Well-appearing and in no apparent distress. Skin: Warm, dry, no pallor noted. No rash. The patient rectal exam: The caring nurse was present at the bedside The patient had a hemorrhoid almost at 9:00 that is thrombosed external and not actively bleeding, no induration no signs of infection Right leg exam: Patient have abrasion to the anterior of the right knee there is no significant tenderness on palpation of the anterior knee and the patient have full range of movement Constitutional Vital Signs, click to edit/add: Last Vital Signs Temp 97.8 F 11/01/24 08:18 Pulse 78 11/01/24 08:18 Resp 16 11/01/24 08:18 BP 143/91 H 11/01/24 08:18 Pulse Ox 95 11/01/24 08:18 O2 Del Method Room Air 11/01/24 08:18 Course Vital Signs Vital signs: Vital Signs Temperature 97.8 F 11/01/24 08:18 Pulse Rate 78 11/01/24 08:18 Respiratory Rate 16 11/01/24 08:18 Blood Pressure 143/91 H 11/01/24 08:18 Pulse Oximetry 95 11/01/24 08:18 Oxygen Delivery Method Room Air 11/01/24 08:18 Temperature 97.8 F 11/01/24 08:18 Pulse Rate 78 11/01/24 08:18 Respiratory Rate 16 11/01/24 08:18 Blood Pressure 143/91 H 11/01/24 08:18 Pulse Oximetry 95 11/01/24 08:18 Oxygen Delivery Method Room Air 11/01/24 08:18 Medical Decision Making MDM Narrative Medical decision making narrative: X-ray of the right knee showed no acute pathology The patient rectal exam showed thrombosed hemorrhoid he was instructed about proper care of a hemorrhoid with the RectiCare in addition to Anusol and warm sitz bath The patient is to follow up with primary care physician in next 2-3 days or to return to the emergency department should any of the signs or symptoms worsen or new symptoms develop. The patient agrees with the following Diagnosis and Treatment plan and the patient will be discharged home. Discharge Plan Discharge Chief Complaint: GI Bleed Clinical Impression: Hemorrhoids, Contusion of knee Patient Disposition: Home, Self-Care Time of Disposition Decision: 09:44 Condition: Good Prescriptions / Home Meds: New hydrocortisone acetate [Anucort-HC] 25 mg suppository 25 mg LA DAILY PRN (Reason: hemorrhoids) Qty: 12 0RF lidocaine [[facility]Care] 5 % cream 1 applic topical TID PRN (Reason: pain) Qty: 15 0RF No Action celecoxib 200 mg capsule losartan 25 mg tablet hydrochlorothiazide 25 mg tablet Print Language: [place] Instructions: Hemorrhoids (DC), Contusion in Adults (ED), Sitz Bath (DC) Referrals: PRIETO LEAL [Primary Care Provider, Family Practice] - 1 week Discharge Date/Time: 11/01/24 10:17
== END 2024-11-01 10:17 | disposition home or self-care (01) ==
PROVIDERS: Emergency Provider Emergency Medicine; PCP Family Medicine
DX: K64.8 Other hemorrhoids (principal); S80.01XA Contusion of right knee, initial encounter; M25.561 Pain in right knee; S80.211A Abrasion, right knee, initial encounter; W18.31XA Fall on same level due to stepping on an object, initial encounter
CPT/HCPCS: 73562; 99283

== ENCOUNTER 2025-01-19 12:40 | Emergency (ER) | payer OTHER, SELFPAY ==
--- OUTSIDE RECORDS SUMMARY | 2025-01-07 10:15 | XMS_ITS | Encounter Summary ---
Author Organization [facility] Address [address] [place] [address] Care Team Providers Care Pressroom Foreman Name Role Phone Eze Kennedy MD Primary Care Provider [phone] Reason for Referral * Clinic-Administered Medication (Routine) - Closed Specialty Diagnoses / Procedures Referred By Contac t Referred To Contact Orthopaedic Surgery Diagnoses Acute pain of left knee Procedures L Inj/Asp: L knee Albert Rico PA [address] [address] Phone: tel: fax: Referral ID Status Reason Start Date Expiration Date Visits Re quested Visits Authorized [id number] Closed 01/07/2025 07/06/2025 1 1 Reason for Visit * Reason Comments Osteoarthritis Follow-up Encounter Details Date Type Department Care Team (Late st Contact Info) Description 01/07/2025 10:15 AM EDT Office Visit [facility] [address] [facility] [place] [address] Albert Rico PA [address] [place] [address] Acute pain of left knee (Primary Dx) Social History Tobacco Use Types Packs/Day Years Used Date Smoking Tobacco: Never Smokeless Tobacco: Never Tobacco Cessation:Counseling Given: Not Answered Comments:Quit smoking 2005 Alcohol Use Standard Drinks/Week Comments Yes 5 (1 standard drink = 0.6 oz pur e alcohol) Sex and Gender Information Value Date Recorded Sex Assigned at Not on file Legal Sex Male 6:58 PM EDT Gender Identity Not on file Sexual Orientation Not on file documented as of this encounter Last Filed Vital Signs Vital Sign Reading Time Taken Comments Blood Pressure - - Pulse - - Temperature - - Respiratory Rate - - Oxygen Saturation - - Inhaled Oxygen Concentration - - Weight 126 kg (277 lb) 01/07/2025 10:25 AM EDT Height 180.3 cm (5' 11 ) 01/07/2025 10:25 AM EDT Body Mass Index 38.63 01/07/2025 10:25 AM EDT documented in this encounter Patient Instructions * Patient Instructions* EVERETT Duran - 01/07/2025 10:15 AM EDT Anticipate the improvement with cortisone in the left knee after 48 hours up to 1 week. Ice 20 minutes several times a day and compressive knee support during waking hours. Tylenol for discomfort follow up with Dr. Krishnamurthy for right total knee replacement coming up in the near future. documented in this encounter Progress Notes * Maisha Merino MA - 01/07/2025 10:15 AM EDTAssociated Order(s): L Inj/Asp: L knee Post-Procedure Diagnose(s): Acute pain of left knee L Inj/Asp: L knee on 01/07/2025 10:34 AM Indications: pain Details: 25 G needle, anterolateral approach Medications: 12 mg betamethasone acetate-betamethasone sodium phosphate 6 (3-3) MG/ML Procedure, treatment alternatives, risks and benefits explained, specific risks discussed. Consent was given by the patient. Immediately prior to procedure a time out was called to verify the correctpatient, procedure, equipment, logistics support and site/side marked as required. Patient was prepped and draped in the usual sterile fashion. * EVERETT Duran - 01/07/2025 10:15 AM EDT Images from the original note were not included. Subjective Patient ID: Earle Mancia is a 49 y.o. male. Chief Complaint: Osteoarthritis and Follow-up of the Left Knee Last Surgery: No surgery found Last Surgery Date: No surgery found HPI Earle comes in his left knee has been bothering him as he is favoring the right. He is scheduled tohave the right knee replaced in a few weeks with Dr. Krishnamurthy he would like to have cortisone in the left knee to help reduce swelling and stiffness and achiness that is waking him up at nighttime. Objective Ortho Exam Patient has patellofemoral crepitus bilaterally the left knee does appear to have a mild effusion there is no erythema or fever no evidence of infection there is no prepatellar swelling redness or rash. He has near full extension and flexion of 115 degrees. Image Results: XR knee 3 views left Imaging Result: X-rays, permanently saved to the patient's record, are reviewed AP, lateral and sunrise views weight bearing films taken in the [employer] office saved to the permanent record shows grade IV end stage degenerative changes of the right knee of the medial and patellofemoral joint. There is mild to moderate varus deformity. There is no fracture, dislocation, tumor or infection seen. No sign of demineralization. The left knee has moderate degenerative changes that are grade II to early III in the same pattern. There is neutral alignment on the left knee. XR knee 3 views right Imaging Result: X-rays, permanently saved to the patient's record, are reviewed AP, lateral and sunrise views weight bearing films taken in the [employer] office saved to the permanent record shows grade IV end stage degenerative changes of the right knee of the medial and patellofemoral joint. There is mild to moderate varus deformity. There is no fracture, dislocation, tumor or infection seen. No sign of demineralization. The left knee has moderate degenerative changes that are grade II to early III in the same pattern. There is neutral alignment on the left knee. Assessment/Plan Encounter Diagnoses: Acute pain of left knee Orders Placed This Encounter L Inj/Asp: L knee Follow up if symptoms worsen or fail to improve. Anticipate the improvement with cortisone in the left knee after 48 hours up to 1 week. Ice 20 minutes several times a day and compressive knee support during waking hours. Tylenol for discomfort follow up with Dr. Krishnamurthy for right total knee replacement coming up in the near future. documented in this encounter Plan of Treatment Upcoming Encounters Date Type Department Care Team ([facility] st Contact Info) Description 01/23/2025 1:20 PM EDT Office Visit [facility] [address] [facility] [address] [place] [id number] Barry Ventura DPM [address] [facility] [address] [place] [address] documented as of this encounter Procedures Procedure Name Priority Date/Time Associated Diagnosis Comments MN ARTHROCENTESIS ASPIR&/INJ MAJOR JT/BURSA W/O US Routine 01/07/2025 10:34 AM EDT Acute pain of left knee documented in this encounter Results * MN ARTHROCENTESIS ASPIR&/INJ MAJOR JT/BURSA W/O US (01/07/2025 10:34 AM EDT) Narrative Maisha Merino MA - 01/07/2025 10:34 AM EDT Maisha Merino MA 01/07/2025 1:57 PM L Inj/Asp: L knee on 01/07/2025 10:34 AM Indications: pain Details: 25 G needle, anterolateral approach Medications: 12 mg betamethasone acetate-betamethasone sodium phosphate 6 (3-3) MG/ML Procedure, treatment alternatives, risks and benefits explained, specific risks discussed. Consent was given by the patient. Immediately prior to procedure a time out was called to verify the correct patient, procedure, equipment, logistics support and site/side marked as required. Patient was prepped and draped in the usual sterile fashion. us Albert FLOYD IN CLINIC/BEDSIDE ORDERABLES Fin al Result documented in this encounter Visit Diagnoses Diagnosis Acute pain of left knee- Primary documented in this encounter Administered Medications Inactive Administered Medications - up to 3 most recent administrations Medication Order MAR Action Action Date Dose Rate Site betamethasone acetate-betamethasone sodium phosphate (Celestone) injection 12 mg 12 mg, Intra-articular, Once PRN Procedure, Starting on Mon01/07/25 at 1034, For 1 doseIndications:Acute pain of left knee Given 01/07/2025 10:34 AM EDT 12 mg documented in this encounter Care Teams Pressroom Foreman Relationship Specialty Start Date End Date Eze Kennedy MD [address] [address] PCP - General Family Medicine 11/07/24 documented as of this encounter
--- OUTSIDE RECORDS SUMMARY | 2025-01-13 09:03 | XMS_ITS ---
Author Name Auto Generated Organization [facility] Care Team Providers Care Lease Administration Analyst Name Role Phone YANETH OSHEA Referring Unavailable YANETH OSHEA Referring Unavailable YANETH OSHEA Attending Unavailable KRISHNA KING Attending Unavailable KRISHNA KING Referring Unavailable Edward Barnard A Admitting Unavailable Edward Barnard A Attending Unavailable Marcia, Eze M. Primary Care Unavailable Jerrod, Ginger M Admitting Unavailable Jerrod, Ginger M Attending Unavailable Marcia, Eze M. Primary Care Unavailable EvonDavidin A Admitting Unavailable Evon, Edward A Attending Unavailable Marcia, Eze M. Primary Care Unavailable MARCIA, EZE M Admitting Unavailable MARCIA, EZE M Attending Unavailable MARCIA, EZE M Admitting Unavailable MARCIA, EZE M Attending Unavailable MARCIA, EZE M Admitting Unavailable MARCIA, EZE M Attending Unavailable PROBLEMS DATE TYPE CONDITION / CODE ATTENDING STATUS CHRISTINE [facility] 08/09/2024 Unknown Unilateral prima ry osteoarthritis, left knee / M17.12(ICD-10) Edward Barnard [facility] 08/09/2024 Unknown Unilateral prima ry osteoarthritis, right knee / M17.11(ICD-10) Edward Barnard [facility] 05/30/2024 Unknown Wheezing / R06.2(ICD-10) Jerrod Ginger [facility] 05/30/2024 Unknown Shortness of carl ath / R06.02(ICD-10) Kristin Elderanda [facility] 04/18/2024 Unknown Unspecified inte rnal derangement of right knee / M23.91(ICD-10) Edward Barnard [facility] PROCEDURES No Procedure Records Found RESULTS CMP Collected: 01/13/2025 9:13 AM Status: F Source: [facility] TYPE CODE TESTS RESULT OUT OF RANGE REFERENCE UNITS LAB 53317694(LOINC) Glucose Lvl 101 Normal 55-199 mg/d L LAB 55327087(LOINC) BUN 17 Normal 5-21 mg/dL LAB 6067655(LOINC) Creatinine 0.9 Normal 0.5-1.3 mg/dL LAB 52409366(LOINC) Calcium Lvl 9.4 Normal 8.9-11.1 mg/ dL LAB 29121271(LOINC) Sodium Lvl 138 Normal 135-145 mmol/ L LAB 56879002(INC) Potassium Lvl 3.8 Normal 3.5-5.3 mm ol/L LAB 39325118(LOINC) Chloride 105 Normal 101-111 mmol/L LAB 95967934(LOINC) CO2 25 Normal 21-31 mmol/L LAB 26816878(LOINC) Alk Phos 81 Normal 21-98 Int._Un it /L LAB 74305330(LOINC) Bili Total 1.6 High 0.0-1.1 mg/dL LAB 96223232(LOINC) Albumin Lvl 4.8 Normal 3.3-5.0 gm/d L LAB 66042136(LOINC) Total Protein 7.4 Normal 6.0-7.8 gm /dL LAB 39772686(LOINC) ALT 32 Normal 6-46 Int._Uni t /L LAB 32348934(INC) AST 23 Normal 5-43 Int._Uni t /L LAB 00304864(INC) BUN/Creat Ratio 19 Normal 10-20 No Units LAB 82625436(INC) AGAP 12 Normal 6-16 mEq/L LAB 35606736([facility]) Globulin 2.6 Normal 1.4-4.0 gm/dL LAB 15485950([facility]) A/G Ratio 1.8 Normal 1.1-2.2 Performed By: #### [id number] # ### [facility] [address] [place] [address] CBC W/ AUTO DIFF Collected: 5 9:13 AM Status: F Source: [facility] TYPE CODE TESTS RESULT OUT OF RANGE REFERENCE UNITS LAB 97088599([facility]) WBC 7.1 Normal 4.0-11.0 E9/L LAB 86968104([facility]) RBC 5.7 Normal 4.3-5.9 E12/L LAB 51294869([facility]) HGB 21.0 High 13.5-17.5 gm/dL LAB 05346612(INC) Hct 59.9 High 37.7-49.0 % LAB 05950840([facility]) RDW 14.0 Normal 10.9-14.2 % LAB 45587116(INC) MCH 36.6 High 27.0-34.0 pg LAB 62874582([facility]) MCHC 35.0 Normal 31.4-36.0 gm/dL LAB 68287378(INC) MCV 104.6 High 80.0-100.0 fL LAB 29823184(LOINC) MPV 7.4 Normal 6.4-10.8 fL LAB 58124282(LOINC) Platelet 226.0 Normal 150.0-500.0 E9/ L LAB 49945480(INC) Neutro Auto 67.0 Normal 36.0-75.0 % LAB 44683669(INC) Lymph Auto 18.3 Normal 14.0-50.0 % LAB 14701151(INC) Letcher Auto 6.5 Normal 4.0-14.0 % LAB 67693615(LOINC) Eos Auto 6.1 Normal 0.0-8.0 % LAB 51936686(LOINC) Basophil Auto 2.1 High 0.0-2.0 % LAB 58319342(LOINC) Neutro Absolute 4.7 Normal 2.0-7.5 E9/L LAB 74272333(LOINC) Lymph Absolute 1.3 Normal 1.0-4.0 E9/L LAB 80395817(LOINC) Letcher Absolute 0.5 Normal 0.2-1.0 E9 /L LAB 84345864(LOINC) Eos Absolute 0.4 Normal 0.0-0.5 E9/ L LAB 68467683(LOINC) Basophil Absolute 0.2 Normal 0.0-0.2 E9/L Performed By: #### [id number] # ### [facility] [address] [place] [address] PSA SCREEN, TOTAL Collected: 5 9:13 AM Status: F Source: [facility] TYPE CODE TESTS RESULT OUT OF RANGE REFERENCE UNITS LAB [id number]([facility]) PSA Scrn Tot. 0.1 Normal 0.1-3.5 ng/mL Result Comment: The concentr ation of PSA determined by different manufacturers can vary due to differences in assay methods and reagent specificity. Values obtained from different assay methods cannot be used interchangeably. The methodology used for this result was chemiluminescence using Marv Okan's Access Hybritech PSA reagent. Performed By: #### [id number] #### [facility] [address] [place] [address] LIPID PANEL Collected: 9:13 AM Status: F Source: [facility] TYPE CODE TESTS RESULT OUT OF RANGE REFERENCE UNITS LAB 86660609(LOINC) Chol 130 Normal 120-200 mg/dL LAB 80164439(LOINC) HDL 51 Unknown mg/dL Result Comment: '>= 60 LOW R ISK' '<= 40 HIGH RISK' LAB 42911491(LOINC) LDL Direct 59 Normal <=129 mg/dL LAB 53724324(LOINC) Trig 132 Normal <=149 mg/dL LAB 31143283(LOINC) VLDL 26 Normal 7-40 mg/dL Performed By: #### [id number] # ### [facility] [address] [place] [address] TESTOSTERONE F&T Collected: 01/13/2025 9:13 AM Statu s: F Source: [facility] TYPE CODE TESTS RESULT OUT OF RANGE REFERENCE UNITS LAB 03754117(LOINC) Testoster Free 5.2 Low 7.2-24.0 pg/mL Result Comment: Performed at : [facility] [address] [id number] PhD Dariana Johnson Performed at: [facility] [address] [id number] MD Nakul Wright LAB 80006222(LOINC) Testoster Tot 299 Unknown 264-916 ng /dL Result Comment: Adult male r eference interval is based on a population of healthy nonobese males (BMI <30) between 19 and 39 years old. Grace et.al. JCEM 2017,102;2639-1554. PMID: 39111855. Performed By: #### [id number] #### [facility] [address] [place] [address] EGFR Collected: 9:13 AM Status: F Source: [facility] TYPE CODE TESTS RESULT OUT OF RANGE REFERENCE UNITS LAB 71015738(LOINC) eGFR 103 Normal >=59 mL/min/1 .7 3 m2 Performed By: #### [id number] #### [facility] [address] [place] [address] XR KNEE BI 4V Observed: 08/09/2024 11:45 AM Status: COMPLETED Source: [facility] [address] [place] [address] XRay Report Signed Patient: Manju Castro MR#: [id number] 310 : 1975 Acct:[id number] Age/Sex: 49 / M ADM Date: 08/09/24 Loc: [facility] Room: Type: [facility] CLI Attending Dr: Edward Barnard DO Copies [...] Stefanie Guzman M.D.08/09/2024 11:48 AM Dictation Location: [place] [address] Transcribed By: [facility] 08/09/24 1148 Dictated By: Stefanie Guzman MD 08/09/24 1145 Signed By: <Electronically signed by MD Stefanie Guzman in OV> 08/09/24 1148 XR CHEST 2V* Observed: 05/30/2024 3:07 PM Status: COMPLETED Source: [facility] [place] [address] XRay Report Signed Patient: Manju Castro MR#: [id number] 310 : 1975 Acct:[id number] Age/Sex: 48 / M ADM Date: 05/30/24 Loc: [facility] Dr: Ginger Elder [employer]ER [employer]OLD [employer]KER Copies to: Ginger Elder APRN Ordering Provider: Ginger Elder APRN Date of Service: 05/30/24 XR/XR chest 2V*: R06.2 - Wheezing Plain film chest 2 view HISTORY: Cough and chest congestion COMPARISON: 07/19/2006 FINDINGS: SUPPORT DEVICES: None POSTSURGICAL CHANGES: None HEART: Within normal limits PULMONARY ANJU: Within normal limits MEDIASTINUM: Unremarkable LUNGS AND PLEURA: Developing basilar groundglass consolidation. Consider pneumonitis/infiltrate. Minimal blunting of posterior costophrenic angle. No pneumothorax. BONY STRUCTURES: Intact ADDITIONAL FINDINGS None XR/XR chest 2V* IMPRESSION: Minimal basilar ground glass infiltrate/pneumonitis. Impression dictated by: Manav Joyner M.D.05/30/2024 3:10 PM Dictation Location: [facility] Transcribed By: [facility] 05/30/24 1510 Dictated By: Manav Joyner DO 05/30/24 1507 Signed By: <Electronically signed by Manav Joyner DO in OV> 05/30/24 1510 MR KNEE RT WO CON Observed: 04/18/2024 8:56 AM Status: COMPLETED Source: [facility] [place] [address] MRI Report Signed Patient: Manju Castro MR#: [id number] 310 : 1975 Acct:[id number] Age/Sex: 48 / M ADM Date: 04/18/24 Loc: [facility] Room: Type: [facility] CL Attending Dr: Edward Barnard DO Copies to: [...] Shola Goff M.D.04/18/2024 9:01 AM Dictation Location: [place] [address] Transcribed By: [facility] 04/18/24 09 Dictated By: Shola Goff II, MD 04/18/24 0856 Signed By: <Electronically signed by Shola Goff II, MD in > 04/18/24 0901 ALLERGIES DATE TYPE / CODE NAME / CODE REACTION SEVERITY SOURCE 10/04/2024 Drug Allergy/590395705 (SNOMED CT) No Known Allergies/P5926822 88(RXNORM) Unknown [facility] ENCOUNTERS ADMIT/DISCHARGE ACCOUNT NUMBER ADMITTING ENCOUNTER CLASS LOCATION SOURCE 01/13/2025 [id number] MARCIA EZE [facility] 01/13/2025 [id number] MARCIA EZE [facility] 01/13/2025/01/14/20 [id number] MARCIA EZE [facility] 01/07/2025/01/08/20 [id number] Ambulatory Building:[facility] 11/07/2024/07/17 [id number] Ambulatory Building:[facility] 11/07/2024/11/08/19 25 [id number] Ambulatory Building:[facility] 11/07/2024/11/08/19 [id number] Ambulatory Building:[facility] 08/09/2024/08/10/19 [id number] [facility] 05/30/2024/05/30/19 [id number] Ginger Elder [facility]XDU[facility] 04/18/2024/04/18/20 [id number] Edward Barn[facility] PAYERS ENCOUNTER GUARANTOR PAYER SUBSCRIBER SOURCE 01/13/2025 MANJU PEREIRAWDOB: CHARITY AVETel: ~(464 [phone] (HP) Primary Insurance: FOR [facility] MEDICARE SECONDARYPolicy Number: [id number] Date:[id number] [address] [place] [address]XO: MANJU Pierce [facility] 01/13/2025 Secondary Insurance:[facility] CLAIMPolicy Number: [id number] Date:2025-01-13 MANJU Pelayo [facility] 01/13/2025 MANJU Pelayo ARSHENOWDOB: CHARITY AVETel: ~([phone] (HP) Primary Insurance:[facility] CLAIMPolicy Number: [id number] Date:2025-01-13 MANJU Pelayo [facility] 01/13/2025 Secondary Insurance: FOR LIFE MEDICARE SECONDARYPolicy Number: [id number] Date:6404-06-51TY [address] [address]QQ: MANJU MCKEON [facility] 01/13/2025 MANJU Pelayo PASENOWDOB: CHARITY AVETel: ~(061 [phone] (HP) Primary Insurance:TricarePolic y Number: [id number] Date:2025-01-13 MANJU MCKEON [facility] 01/13/2025 Secondary Insurance: FOR LIFE MEDICARE SECONDARYPolicy Number: [id number] Date:5515-53-93ES CARLOS CooperMINNEAPOLIS VA [place] [address]XH: MANJU MCKEON [facility] 01/07/2025 MANJU Pelayo PASENOWDOB: [place] [id number]: (HP) Primary Insurance:TRICAREPolic y Number: [id number] Date:2024-04-24 MANJU Pelayo PASENOWDOB: [id number] [place] [address] [facility] 11/07/2024 MANJU Pierce PASENOWDOB: [place] [address]Vgq: (HP) Primary Insurance:TRICAREPolic y Number: [id number] Date:2024-04-24 MANJU Pelayo PASENOWDOB: [id number] [place] [address] [facility] 11/07/2024 MANJU Pierce PASENOWDOB: [place] [address]Ard: (HP) Primary Insurance:TRICAREPolic y Number: [id number] Date:2024-04-24 MANJU Pelayo PASENOWDOB: [id number] [place] [address] [facility] 11/07/2024 MANJU Pelayo PASENOWDOB: [place] [address]Epn: (HP) Primary Insurance:TRICAREPolic y Number: [id number] Date:2024-04-24 MANJU Pelayo ARSHENOWDOB: [id number] [address] [facility] 08/09/2024 [place] [address]Hma: (HP) Primary Insurance:[facility] CenterPolicy Number: [id number] Date:9279-17-64FS [address] [address]NA: aMnju Pelayo ArshenowDOB: [id number] [address]Qvh: (HP) [facility] 08/09/2024 Secondary Insurance:Self PayPolicy Number: Effective Date:2024-08-09 [facility]/30[facility]2024 [place] [address]Ebh: (HP) Primary Insurance:[facility] CenterPolicy Number: [id number] Date:6473-97-29PJ [address] [address]OL: Manju Pelayo ArshenowDOB: [id number] [place] [address]Chk: (HP) [facility] 05/30/2024 Secondary Insurance:Self PayPolicy Number: Effective Date:2024-05-30 NOT [facility]IVENA[facility] 04/18/2024 [place] [address]Onx: (HP) Primary Insurance:[facility] Medical CenterPoly Number: [id number] Date:1868-35-94QI [address] [address]HW: Manju PereirawDOB: [id number] [facility] [place] [address]Lyt: () [facility] 04/18/2024 Secondary Insurance:Self PayPolicy Number: Effective Date:2024-04-09 NOT GIVENUNK [facility]
[2025-01-19 12:44] VITALS: BP 131/79; PULSE 83; TEMP 36.5; O2SAT 95; BMI 38.4
--- NOTE | 2025-01-19 12:59 | XR_ITS ---
The [address] [address] Patient Name: MANJU CASTRO MRN: [id number] date: 1975 Sex: M Assigned Patient Location: ED.MAIN Current Patient Location: ED.MAIN Accession/Order Number: [id number] Exam Date: 01/19/2025 13:35 Report Date: 01/19/2025 14:06 At the request of: SUREKHA BATES MD Procedure: XR knee LT 3V XR knee LT 3V 01/19/2025 1:00 PM SIGNS AND SYMPTOMS: ^Knee popped today, painful PROTOCOL: 3 views of the left knee COMPARISON: None FINDINGS: There is narrowing of the weightbearing joint spaces greatest medially. Patellofemoral joint space is noted. There is spurring at the superior pole the patella. No joint effusion. No soft tissue swelling. XR/XR knee LT 3V IMPRESSION: No acute bony. Degenerative noted greatest in the medial weightbearing joint space. Impression dictated by: Shola Goff M.D. 01/19/2025 2:06 PM Dictation Location: [place] [address] Electronically authenticated by: [id number] Y Date: 01/19/2025 14:06
--- NOTE | 2025-01-19 13:00 | ED.GENADUL1 ---
HPI HPI - General Adult General Chief complaint: Extremity Injury, Lower Stated complaint: LOWER EXTREMITY PAIN Time Seen by Provider: 01/19/25 12:52 Source: patient Mode of arrival: Wheelchair Limitations: no limitations History of Present Illness HPI narrative: 49-year-old male presented to the emergency department for pain in his left knee. He was putting up some Halloween decorations today and was walking and he felt a popping feeling in his left knee. He points to the inferior medial aspect of his knee. He states he has bilateral bad knees and is scheduled for right knee replacement on February 21. He states that he has degenerative changes in the left knee as well. No pain in the calf ankle or hip. Related Data Home Medications ?Medication ?Instructions ?Recorded ?Confirmed celecoxib 200 mg capsule 200 mg PO DAILY 11/01/24 01/19/25 hydrochlorothiazide 25 mg tablet mg 11/01/24 losartan 25 mg tablet mg 11/01/24 hydrochlorothiazide 12.5 mg tablet 12.5 mg PO DAILY 01/19/25 01/19/25 losartan 100 mg tablet 100 mg PO DAILY 01/19/25 01/19/25 Previous Rx's ?Medication ?Instructions ?Recorded hydrocortisone acetate 25 mg 25 mg WA DAILY PRN hemorrhoids #12 11/01/24 rectal suppository (Anucort-HC) ea lidocaine 5 % topical cream 1 applic topical TID PRN pain #15 11/01/24 (RectiCare) grams acetaminophen 300 mg-codeine 30 mg 1 tab PO Q6H PRN pain 5 days #20 01/19/25 tablet tabs ibuprofen 800 mg tablet 800 mg PO Q8H PRN pain #20 tabs 01/19/25 Allergies Allergy/AdvReac Type Severity Reaction Status Date / Time No Known Drug Allergies Allergy Verified 01/19/25 12:44 Opioid HPI Opioid Management Most Recent Opioid Data: Last Pain Scale 7 Today, 12:51 Review of Systems ROS Narrative A ten point review of systems is negative except as noted above. PFSH PFSH Social History Little interest or pleasure in doing things: not at all Feeling down, depressed, or hopeless: not at all Exam Narrative Exam Narrative: Nurses note and vital signs reviewed and patient is not hypoxic. General:The patient appears well and in no apparent distress.Patient is resting comfortably on cart. Skin:Warm, dry, no pallor noted.There is no rash noted. Head:Normocephalic, atraumatic Eye: Normal conjunctiva, no drainage Ears, Nose, Mouth, and Throat: oral mucosa is moist. Nares patent. Cardiovascular:Regular Rate and Rhythm Respiratory:Patient is in no distress, no accessory muscle use Back:non-tender GI: Soft and nontender Musculoskeletal: The left knee is examined. There is some tenderness at the inferior medial aspect. No ballotable effusion. The knee joint is stable. No calf tenderness or swelling. Neurological:A&O, normal speech Psychiatric:Cooperative Constitutional Vital Signs, click to edit/add: Last Vital Signs Temp 97.7 F 01/19/25 12:44 Pulse 83 01/19/25 12:44 Resp 16 01/19/25 12:44 BP 131/79 01/19/25 12:44 Pulse Ox 95 01/19/25 12:44 O2 Del Method Room Air 01/19/25 12:44 Course Vital Signs Vital signs: Vital Signs Temperature 97.7 F 01/19/25 12:44 Pulse Rate 83 01/19/25 12:44 Respiratory Rate 16 01/19/25 12:44 Blood Pressure 131/79 01/19/25 12:44 Pulse Oximetry 95 01/19/25 12:44 Oxygen Delivery Method Room Air 01/19/25 12:44 Temperature 97.7 F 01/19/25 12:44 Pulse Rate 83 01/19/25 12:44 Respiratory Rate 16 01/19/25 12:44 Blood Pressure 131/79 01/19/25 12:44 Pulse Oximetry 95 01/19/25 12:44 Oxygen Delivery Method Room Air 01/19/25 12:44 Medical Decision Making [facility] Narrative Medical decision making narrative: X-ray shows degenerative changes but no acute findings. Celso wrap applied, application checked by me and found to be appropriate, he is neurovascularly intact. The patient has crutches at home that he can utilize and is already established with an orthopedist and he will call tomorrow. He was given a work note for the next 2 days and prescribed ibuprofen and Tylenol 3. Treatment diagnosis and follow-up were discussed with the patient. Differential Diagnosis Differential Diagnosis: Knee sprain, fracture, meniscal tear Imaging Data Left knee x-ray: Radiologist's impression: ITS Impressions Knee X-Ray 01/19/25 12:59 IMPRESSION: No acute bony. Degenerative noted greatest in the medial weightbearing joint space. Impression dictated by: Shola Goff M.D. 01/19/2025 2:06 PM Dictation Location: [place] [id number] Electronically authenticated by: [id number] Y Date: 01/19/2025 14:06 Discharge Plan Discharge Chief Complaint: Extremity Injury, Lower Clinical Impression: Pain in left knee Patient Disposition: Home, Self-Care Time of Disposition Decision: 14:16 Condition: Good Mode of Transportation: Private Vehicle Prescriptions / Home Meds: New acetaminophen-codeine 300-30 mg tablet 1 tab PO Q6H PRN (Reason: pain) 5 Days Qty: 20 0RF ibuprofen 800 mg tablet 800 mg PO Q8H PRN (Reason: pain) Qty: 20 0RF No Action celecoxib 200 mg capsule 200 mg PO DAILY losartan 25 mg tablet hydrochlorothiazide 25 mg tablet hydrocortisone acetate [Anucort-HC] 25 mg suppository 25 mg WA DAILY PRN (Reason: hemorrhoids) Qty: 12 0RF lidocaine [RectiCare] 5 % cream 1 applic topical TID PRN (Reason: pain) Qty: 15 0RF losartan 100 mg tablet 100 mg PO DAILY hydrochlorothiazide 12.5 mg tablet 12.5 mg PO DAILY Print Language: Luxembourgish Instructions: Knee Pain (ED) Additional Instructions: Follow-up with your orthopedist. Referrals: PRIETO LEAL [Primary Care Provider, Family Practice] - 1 week
--- OUTSIDE RECORDS SUMMARY | 2025-01-19 13:09 | XMS_ITS | Clinical Summary ---
Author Organization [facility] Address [address] [place] [address] Care Team Providers Care Chainstitch Seat Joiner Name Role Phone Eze Kennedy MD Primary Care Provider [phone] Allergies No known active allergies Medications celecoxib (CeleBREX) 200 MG capsule 5 Active hydroCHLOROthiaz kd (HYDRODiuril) 12.5 MG tablet Take 12.5 mg by mouth Daily 5 Active hydrocortisone (Anusol-HC) 25 MG suppository UNWRAP AND INSERT 1 SUPPOSITORY RECTALLY ONCE A DAY NEEDED FOR HEMORRHOIDS 5 Active losartan (Cozaar) 100 MG tablet 5 Active tadalafil (Cialis) 20 MG tablet 5 Active Testosterone 20.25 MG/ACT (1.62%) gel USE 1 PUMP AMOUNT OVER MAX AREA OF ONE UPPER ARM AND SHOULDER ONCE A DAY 5 Active traZODone (Desyrel) 100 MG tablet 3 Active Turmeric (QC TUMERIC COMPLEX PO) Take by mouth Active Hospital, Clinic, or Other Facility Administered Medication Ordered Dose Route Frequency Start Date End Date Status betamethasone acetate-betamethason e sodium phosphate (Celestone) injection 12 mgIndications:Acute pain of left knee 12 mg IX Once PRN Procedure 01/07/2025 01/07/2025 Ended Active Problems No known active problems Encounters Date Type Department Care Team Description 01/07/2025 10:15 AM EDT Office Visit [facility] [address] [place] [phone] Albert Rico PA Acute pain of left knee (Primary Dx) 01/07/2025 Bamboo flowsheet [facility] [address] [facility] [address] [place] [phone] Albert Rico PA 01/07/2025 Travel 01/06/2025 Travel 01/03/2025 Telephone [facility] [address] [place] [phone] Roslyn Falcon RN injection? 11/07/2024 8:45 AM EDT Office Visit [facility] [address] [place] [phone] Vignesh Krishnamurthy, Pre-op testing (Primary Dx); Acute pain of both knees 11/07/2024 8:05 AM EDT Ancillary Procedure [facility] [address] [place] [phone] 11/07/2024 8:00 AM EDT Ancillary Procedure [facility] [address] [place] [phone] 11/07/2024 Travel 11/06/2024 Travel from Last 3 Months Social History Tobacco Use Types Packs/Day Years [...] on file Sexual Orientation Not on file Last Filed Vital Signs Vital Sign Reading Time Taken Comments Blood Pressure 132/82 09/17/2021 12:00 PM EDT Pulse - - Temperature - - Respiratory Rate - - Oxygen Saturation - - Inhaled Oxygen Concentration - - Weight 126 kg (277 lb) 01/07/2025 10:25 AM EDT Height 180.3 cm (5' 11 ) 01/07/2025 10:25 AM EDT Body Mass Index 38.63 01/07/2025 10:25 AM EDT Plan of Treatment Upcoming Encounters Date Type Department Care Team (Late st Contact Info) Description 01/23/2025 1:20 PM EDT Office Visit [facility] [address] [facility] [address] [place] [address] Barry Ventura, DPM [address] [facility] 5 [place] [address] Health Maintenance Due Date Last Done Comments CT Colonography 1973 Colonoscopy 1973 Colorectal Cancer Screening 1973 FIT-DNA 1973 FIT 1973 FOBT 1973 Sigmoidoscopy 1973 Influenza Vaccine (#1) 2024 07/15/2014 Procedures Procedure Name Priority Date/Time Associated Diagnosis Comments WI ARTHROCENTESIS ASPIR&/INJ MAJOR JT/BURSA W/O US Routine 01/07/2025 10:34 AM EDT Acute pain of left knee XR KNEE 3 VIEWS LEFT Routine 11/07/2024 7:41 AM EDT Acute pain of both knees XR KNEE 3 VIEWS RIGHT Routine 11/07/2024 7:41 AM EDT Acute pain of both knees from Last 3 Months Results * WI ARTHROCENTESIS ASPIR&/INJ MAJOR JT/BURSA W/O US (01/07/2025 [...] to verify the correct patient, procedure, equipment, technical customer support specialist and site/side marked as required. Patient was prepped and draped in the usual sterile fashion. Albert FLOYD IN CLINIC/BEDSIDE ORDERABLES [facility] Result * XR knee 3 views right (11/07/2024 7:41 AM EDT) Anatomical Region Laterality Modality Lower Extremities, Knee Right Radiogra phic Imaging Narrative 11/08/2024 3:02 PM EDT Imaging Result: X-rays, permanently saved to the patient's record, are reviewed AP, lateral and sunrise views weight bearing films taken in the [place] office saved to the permanent record shows [...] is neutral alignment on the left knee. us Vignesh Krishnamurthy DO IMG XR PROCEDURES Final Resu lt * XR knee 3 views left (11/07/2024 7:41 AM EDT) Anatomical Region Laterality Modality Lower Extremities, Knee Left Radiogra phic Imaging Narrative 11/08/2024 3:02 PM EDT Imaging Result: X-rays, permanently saved to the patient's record, are reviewed AP, lateral and sunrise views weight bearing films taken in the [place] office saved to the permanent record shows [...] is neutral alignment on the left knee. us Vignesh Krishnamurthy DO IMG XR PROCEDURES Final Resu lt from Last 3 Months Insurance Care Teams Chainstitch Seat Joiner Relationship Specialty Start Date End Date Eze Kennedy MD [address] [place] [phone] PCP - General Family Medicine 11/07/24
--- OUTSIDE RECORDS SUMMARY | 2025-01-19 13:09 | XMS_ITS | Encounter Summary ---
Author Organization [facility] Address [address] [place] [address] Care Team Providers Care Pipe Coremaker Name Role Phone Eze Kennedy MD Primary Care Provider [phone] Encounter Details Date Type Department Care Team (Latest Contact Info) Description 01/07/2025 Travel Social History Tobacco Use Types Packs/Day Years Used Date Smoking Tobacco: Never Smokeless Tobacco: Never Comments:Quit smoking 2004 Alcohol Use Standard Drinks/Week Comments Yes 5 (1 standard drink = 0.6 oz pur e alcohol) Sex and Gender Information Value Date Recorded Sex Assigned at Not on file Legal Sex Male 6:58 PM EDT Gender Identity Not on file Sexual Orientation Not on file documented as of this encounter Plan of Treatment Upcoming Encounters Date Type Department Care Team (Late st Contact Info) Description 01/23/2025 1:20 PM EDT Office Visit [facility] [address] [facility] [address] [place] [phone] Barry Ventura DPM [address] [facility] 5 [place] [address] documented as of this encounter Visit Diagnoses Not on filedocumented in this encounter Care Teams Pipe Coremaker Relationship Specialty Start Date End Date Eze Kennedy MD [address] [place] [address] 2 [place] [address] PCP - General Family Medicine 11/07/24 documented as of this encounter
--- OUTSIDE RECORDS SUMMARY | 2025-01-19 13:09 | XMS_ITS | Encounter Summary ---
Author Organization [facility] Address [address] [place] [address] Care Team Providers Care Batch And Furnace Manager Name Role Phone Eze Kennedy MD Primary Care Provider [phone] Encounter Details Date Type Department Care Team (Latest Contact Info) Description 01/06/2025 Travel Social History Tobacco Use Types Packs/Day [...] EDT Office Visit [facility] [address] [facility] 120 [place] [phone] Barry Ventura DPM [address] [facility] 5 [place] [address] documented as of this encounter Visit Diagnoses Not on filedocumented in this encounter Care Teams Batch And Furnace Manager Relationship Specialty Start Date End Date Eze Kennedy MD [address] [place] [address] 2 [place] [address] PCP - General Family Medicine 11/07/24 documented as of this encounter
--- OUTSIDE RECORDS SUMMARY | 2025-01-19 13:09 | XMS_ITS | Encounter Summary ---
Author Organization [facility] Address [address] [place] [address] Care Team Providers Care Atlassian Administrator Name Role Phone Eze Kennedy MD Primary Care Provider [phone] Encounter Details Date Type Department Care Team ([facility] Contact Info) Description 01/07/2025 Bamboo flowsheet [facility] [address] [place] [address] [facility] [address] [place] [address] Albert Rico PA [address] [facility] [place] [address] Social History Tobacco Use Types Packs/Day Years [...] Encounters Date Type Department Care Team (Late Contact Info) Description 01/23/2025 1:20 PM EDT Office Visit [facility] [address] [facility] 120 [place] [address] Barry Ventura DPTravis 3[address] [facility] 5 [place] [address] documented as of this encounter Visit Diagnoses Not on filedocumented in this encounter Care Teams Atlassian Administrator Relationship Specialty Start Date End Date Eze Kennedy MD [address] [place] [phone] PCP - General Family Medicine 11/07/24 documented as of this encounter
== END 2025-01-19 14:38 | disposition home or self-care (01) ==
PROVIDERS: Emergency Provider Emergency Medicine; PCP Family Medicine
DX: M25.562 Pain in left knee (principal)
CPT/HCPCS: 73562; 99283